=== PATIENT | male | born 1940 | race Caucasian/White ===

== ENCOUNTER 2017-07-02 07:59 | Inpatient (IN) | payer OTHER, BC ==
--- NOTE | 2017-06-17 12:17 | CPEKG ---
Heart Rate: 52 RR Interval: 1154 P-R Interval: 184 QRSD Interval: 88 QT Interval: 444 QTC Interval: 413 P [place]: 28 QRS [place]: -17 T Wave [place]: 108 EKG Severity - ABNORMAL ECG - EKG Impression: SINUS RHYTHM EKG Impression: LVH WITH SECONDARY REPOLARIZATION ABNORMALITY Electronically Signed By: Wero Sanches 17-Jun-2017 15:51:45
[~2017-07-02 07:59] MED LIST: TRANEXAMIC ACID 3,000 MG/50 ML BAG IRR ONE; VANCOMYCIN 1 GM VIAL ONE
[2017-07-02] MEDS ORDERED: ROPIVACAINE 0.2% 80 MG, EPINEPHrine 0.2 MG, KETOROLAC TROMETHAMINE 30 MG in BAG 0 ML IU ONE (09:00)
[2017-07-02] MEDS ORDERED: TRANEXAMIC ACID 3,000 MG in NS 50 ML IRR ONE (09:00)
--- NOTE | 2017-07-02 09:04 | PDHPUP ---
History & Physical Update H&P update statement: This history and physical update is based on an assessment of the patient which was completed after admission or registration (within 24 hours), but prior to the surgery/procedure. H&P update: H&P reviewed & patient examined, no change in patient's condition since H&P completed
[2017-07-02] MEDS ORDERED: FAMOTIDINE 20 MG TAB PO ONE (09:13)
[2017-07-02] MEDS ORDERED: ceFAZolin 2 GM/DEXTROSE 100 ML IV ONE (09:13)
[2017-07-02] MEDS ORDERED: ACETAMINOPHEN 325 MG TAB PO ONE (09:13)
[2017-07-02] MEDS ORDERED: DEXAMETHASONE 4 MG/ML VIAL IVP ONE (09:13)
[2017-07-02] MEDS ORDERED: LIDOCAINE 1% 2 ML INJ ID PRN (09:14)
[2017-07-02] MEDS ORDERED: LR 1,000 ML IV ONE (09:14)
[2017-07-02] MEDS ORDERED: PROPOFOL/EMULSION 500 MG/50 ML BOTTLE IV ONE (09:44)
[2017-07-02] MEDS ORDERED: LIDOCAINE 2% 5 ML SDV ONE (09:48)
--- NOTE | 2017-07-02 09:55 | PDANEPAE ---
ANE History of Present Illness right knee OA ANE Past Medical History - Cardiovascular History Hx Hypertension: Yes Hx Arrhythmias: No Hx Chest Pain: No Hx Coronary Artery / Peripheral Vascular Disease: Yes Hx CHF / Valvular Disease: No Hx Palpitations: No Cardiovascular History Comment: pcp monitors bp meds. hasn't seen recruitment assistant in a decade - Pulmonary History Hx COPD: No Hx Asthma/Reactive Airway Disease: No Hx Recent Upper Respiratory Infection: No Hx Oxygen in Use at Home: No Hx Sleep Apnea: Yes Sleep Apnea Screening Result - Last Documented: Positive Pulmonary History Comment: alisa positive uses cpap- instructed pt to bring cpap to hospital - Neurologic History Hx Cerebrovascular Accident: No Hx Seizures: No Hx Dementia: No - Endocrine History Hx Diabetes: Yes Obesity: severe Endocrine History Comment: type 2. hypothyroidism - Renal History Hx Renal Disorders: Yes Renal History Comment: bph. hx of greenlight laser surgery. frequency - Liver History Hx Hepatic Disorders: No - Cancer History Hx Cancer: Yes Cancer History Comment: skin ca removed x6 - Congenital Disorder History Hx Congenital Disorders: No - GI History Hx Gastrointestinal Disorders: Yes Gastrointestinal History Comment: reflux. hx of hernia repairs - Other Health History Other Health History: wears glasses - Chronic Pain History Chronic Pain: Yes (bilateral knees) - Surgical History Prior Surgeries: eyelid surgery. sinus surgery. skin ca removed x6. greenlight laser prostate surgery. hernia repairs. pyloric stenosis surgery at 6 weeks old ANE Review of Systems Review of Systems: - Exercise capacity METS (RN): 3 METS ANE Patient History - Allergies Allergies/Adverse Reactions: No Known Allergies Allergy (Verified 05/26/17 10:30) - Home Medications Home medications: home medication list seen and reviewed Home Medications: Aspirin [Aspirin 325 mg (*)] 0.5 tab PO BID 05/21/17 [Last Taken 06/25/17] Glimepiride [Amaryl 1 MG (*)] 1 mg PO DAILY 05/21/17 [Last Taken 07/02/17 06:30] Herbals/Supplements -Info Only 1 ea PO DAILY 05/21/17 [Last Taken 07/01/17] Hydrochlorothiazide [HCTZ (*)] 25 mg PO DAILY 05/21/17 [Last Taken 07/02/17 06: 30] Levothyroxine [Synthroid 175 mcg (*)] 175 mcg PO DAILY06 05/21/17 [Last Taken 06:30] Losartan Potassium [Cozaar] 100 mg PO DAILY 05/21/17 [Last Taken 07/02/17 06:30] Metoprolol Succinate Xr [Toprol Xl 50 mg (*)] 50 mg PO HS 05/21/17 [Last Taken 07/01/17] Multivitamins [Multivitamin (*)] 1 each PO DAILY 05/21/17 [Last Taken 07/01/17] Omeprazole [Prilosec 20 mg] 20 mg PO BID 05/21/17 [Last Taken 07/02/17 06:30] Simvastatin [Zocor] 10 mg PO HS 05/21/17 [Last Taken 07/01/17] amLODIPine BESYLATE [Norvasc 10 mg (*)] 10 mg PO HS 05/21/17 [Last Taken ] metFORMIN HCL [Glucophage 850 mg (*)] 850 mg PO BIDMEAL 05/21/17 [Last Taken 06/10 06:30] - NPO status NPO Since - Liquids (Date): 07/01/17 NPO Since - Liquids (Time): 22:30 NPO Since - Solids (Date): 07/01/17 NPO Since - Solids (Time): 22:30 - Smoking Hx Smoking Status: Never smoked - Family Anes Hx Family Hx Anesthesia Complications: none ANE Labs/Vital Signs - Vital Signs Blood Pressure: 137/74 Heart Rate: 50 Respiratory Rate: 16 O2 Sat (%): 91 Height: 175.26 cm Weight: 119.748 kg ANE Physical Exam - Airway Neck exam: FROM Mallampati Score: Class 2 Mouth exam: normal dental/mouth exam - Pulmonary Pulmonary: no respiratory distress - Cardiovascular Cardiovascular: regular rate and rhythym - ASA Status ASA Status: IV ANE Anesthesia Plan Anesthesia Plan: spinal Regional Anesthesia: single shot NB, adductor canal FNB
[2017-07-02] MEDS ORDERED: fentaNYL 100 MCG/2 ML INJ ONE (10:27)
[2017-07-02] MEDS ORDERED: PROPOFOL 200 MG/20 ML VIAL ONE (10:33)
[2017-07-02] MEDS ORDERED: LR 500 ML IV PRN (10:37)
[2017-07-02] MEDS ORDERED: HYDROmorphONE/DILAUDID 1 MG/ML INJ IVP PRN (10:37)
[2017-07-02] MEDS ORDERED: ONDANSETRON 4 MG/2 ML VIAL IVP PRN ×2 (10:37→11:25)
[2017-07-02] MEDS ORDERED: NALOXONE HCL 0.4 MG/ML INJ IVP PRN ×2 (10:37)
[2017-07-02] MEDS ORDERED: fentaNYL 100 MCG/2 ML INJ IVP PRN (10:37)
[2017-07-02] MEDS ORDERED: ACETAMINOPHEN 500 MG TAB PO PRN (10:37)
[2017-07-02] MEDS ORDERED: ALBUTEROL 3 ML DEYVIAL IH PRN (10:37)
--- NOTE | 2017-07-02 11:24 | POSTOPPROG ---
Post Op Note Date of Operation: 07/02/17 Surgeon: Rogelio Brewster Financial Sales Consultant: merna murillo Anesthesiologist: lilo Anesthesia: IV Sedation, Local (Specify) (adductor canal), Spinal Pre-op Diagnosis: R knee OA Post-op Diagnosis: R knee OA Indication: failed conservative therapies Procedure: R TKA Inf/Abcess present in the surg proc area at time of surgery?: No EBL: Minimal
[2017-07-02] MEDS ORDERED: PROMETHAZINE HCL 25 MG SUPPR PR PRN (11:25)
[2017-07-02] MEDS ORDERED: LACTULOSE 20 GM/30 ML UDCUP PO PRN (11:25)
[2017-07-02] MEDS ORDERED: TEMAZEPAM 15 MG CAP PO PRN (11:25)
[2017-07-02] MEDS ORDERED: oxyCODONE IR 5 MG TAB PO PRN (11:25)
[2017-07-02] MEDS ORDERED: PROMETHAZINE HCL 25 MG/ML INJ IVP PRN (11:25)
[2017-07-02] MEDS ORDERED: METOCLOPRAMIDE 10 MG/2 ML VIAL IVP PRN (11:25)
[2017-07-02] MEDS ORDERED: ONDANSETRON DISINTEGRATING 4 MG TAB PO PRN (11:25)
[2017-07-02] MEDS ORDERED: MAGNESIUM HYDROXIDE 30 ML UDCUP PO PRN (11:25)
[2017-07-02] MEDS ORDERED: CYCLOBENZAPRINE 10 MG TAB PO PRN (11:25)
[2017-07-02] MEDS ORDERED: POLYETHYLENE GLYCOL 3350 17 GM PKT PO PRN (11:25)
[2017-07-02] MEDS ORDERED: BISACODYL 10 MG SUPP PR PRN (11:25)
[2017-07-02] MEDS ORDERED: DIPHENOXYLATE/ATROPINE LOMOTIL 1 TAB PO PRN (11:25)
[2017-07-02] MEDS ORDERED: diphenhydrAMINE 25 MG CAP PO PRN (11:25)
[2017-07-02] MEDS ORDERED: LR 1,000 ML IV SCH (11:30)
--- NOTE | 2017-07-02 11:36 | POSTANESTH ---
Post Anesthetic Evaluation Cardiovascular Status: Normal, Stable Respiratory Status: Normal, Stable Level of Consciousness/Mental Status: Can Participate in Eval Pain Control: Adequate, Prn Tx Ordered Nausea/Vomiting Control: Adequate, Prn Tx Ordered Complications Possibly Related to Anesthesia: None Noted
[2017-07-02] MEDS: ACETAMINOPHEN 325 MG TAB PO SCH ×4 (16:39→23:40)
[2017-07-02] MEDS ORDERED: metFORMIN HCL 850 MG TAB PO SCH (18:00)
[2017-07-02] MEDS: ceFAZolin 2 GM/DEXTROSE 100 ML IV SCH (18:48)
[2017-07-02] MEDS ORDERED: METOPROLOL SUCCINATE XR 50 MG TAB PO SCH (21:00)
[2017-07-02] MEDS ORDERED: PRAVASTATIN SODIUM 20 MG TAB PO SCH (21:00)
[2017-07-02] MEDS ORDERED: NON-FORMULARY NEW DRUG (Omeprazole [Prilosec 20 Mg] 20 MG) PO SCH (21:00)
[2017-07-02] MEDS ORDERED: NON-FORMULARY NEW DRUG (Simvastatin [Zocor] 10 MG) PO SCH (21:00)
[2017-07-02] MEDS: metFORMIN HCL 850 MG TAB PO SCH (21:04)
[2017-07-02] MEDS: PANTOPRAZOLE SODIUM 40 MG TAB PO SCH (21:06)
[2017-07-02] MEDS: ASPIRIN 325 MG TAB PO SCH (21:09)
[2017-07-02] MEDS: SENNOSIDES/DOCUSATE SODIUM TAB PO SCH (21:09)
[2017-07-02] MEDS: FAMOTIDINE 20 MG TAB PO SCH (21:11)
[2017-07-03] MEDS: ceFAZolin 2 GM/DEXTROSE 100 ML IV SCH (02:00)
[2017-07-03] MEDS: ACETAMINOPHEN 325 MG TAB PO SCH ×2 (05:05→11:20)
[2017-07-03 05:49] LABS: HEMATOCRIT 35.4 % (40.0-51.0); HEMOGLOBIN 11.5 g/dL (13.7-17.5)
[2017-07-03] MEDS ORDERED: LEVOTHYROXINE 175 MCG TAB PO SCH (06:00)
[2017-07-03 08:42] VITALS: BP 139/65
[2017-07-03] MEDS ORDERED: Herbals/Supplements -Info Only PO SCH (09:00)
[2017-07-03] MEDS ORDERED: GLIMEPIRIDE 1 MG TAB PO SCH (09:00)
[2017-07-03] MEDS ORDERED: NON-FORMULARY NEW DRUG (Losartan Potassium [Cozaar] 100 MG) PO SCH (09:00)
[2017-07-03] MEDS ORDERED: HYDROCHLOROTHIAZIDE 25 MG TAB PO SCH (09:00)
[2017-07-03] MEDS ORDERED: LOSARTAN POTASSIUM 50 MG TAB PO SCH (09:00)
[2017-07-03] MEDS: ASPIRIN 325 MG TAB PO SCH (09:12)
[2017-07-03] MEDS: metFORMIN HCL 850 MG TAB PO SCH (09:13)
[2017-07-03] MEDS: PANTOPRAZOLE SODIUM 40 MG TAB PO SCH (09:13)
[2017-07-03] MEDS: SENNOSIDES/DOCUSATE SODIUM TAB PO SCH (09:14)
[2017-07-03] MEDS: FAMOTIDINE 20 MG TAB PO SCH (09:14)
[2017-07-03 12:00] VITALS: PULSE 56; RESP 14; TEMP 97.6; O2SAT 94
--- NOTE | 2017-07-03 12:23 | SOAPPROG ---
SOAP Progress Note Assessment/Plan: Assessment: Patient is doing well POD 1 s/p R TKA Pain management: pain is well controlled on oral pain meds. VTE ppx: recommend aspirin daily for 3 weeks, cont TIEN and SCDs Anemia: level is expected initially postop. Asymptomatic. Continue to monitor D/c planning: d/c to home today pending release from PT Plan: 07/03/17 12:23 Objective: Vital Signs Temp Pulse Resp BP Pulse Ox 36.4 C 56 L 14 139/65 H 94 07/03/17 12:00 07/03/17 12:00 07/03/17 12:00 07/03/17 12:00 07/03/17 12:00 Laboratory Results 07/03/17 05:29 07/02/17 07/03/17 07/04/17 05:59 05:59 05:59 Intake Total 1700 Output Total 1700 Balance 0 ICD10 Worksheet Patient Problems: Problems Problem Status Onset Osteoarthritis of right knee Acute - ICD10 Problem Qualifiers (1) Osteoarthritis of right knee Qualifiers: Osteoarthritis type: primary Qualified Code(s): M17.11 - Unilateral primary osteoarthritis, right knee
--- NOTE | 2017-07-04 17:06 | ASDISCHSUM ---
Discharge Information Plan Status:Home with Home Health Medically Cleared to Leave:07/03/2017 Discharge Date:07/03/2017 03:01 PM CM D/C Disposition:Home, Routine, Self-Care ADT D/C Disposition:Home, Routine, Self-Care Projected Discharge Date:07/03/2017 12:00 AM Transportation at D/C:Family Discharge Delay Reason: Follow-Up Date:07/03/2017 12:00 AM Discharge Slot: Final Diagnosis:R TKA Placement Information Patient Contact Information Contact Name:ROSE Relationship: Address:[address] Work Phone: City:[place] Alternate Phone: [facility]/Zip Code:[place] [address] Email: Financial Information Financial Class:MC Primary Plan Desc:MEDICARE INPATIENT Primary Plan Number:[id number] Secondary Plan Desc:BC OUT OF STATE PPO Secondary Plan Number:[id number] Assessment Information Intervention Information
--- NOTE | 2017-07-04 17:08 | ASMTCMCOM ---
CM Note CM Note Notes: Reviewed chart, spoke w/ JESUSITA Severino. Pt to discharge home independently w/ family support and no identified needs. No OT recs. PT rec outpt rehab and use of a front wheeled walker. Pt to f/u as directed. CM avail for any further issues or concerns. Date Signed: 07/03/2017 05:12 PM Electronically Signed By:Davina Solano
--- NOTE | 2017-07-05 09:24 | GOP ---
[f rep st] OPERATIVE REPORT DATE OF OPERATION: 07/02/2017 SURGEON: Anam Brewster MD MECHANICAL SYSTEMS ENGINEER: Andre Bridges PA-C. ANESTHESIA: Spinal. PREOPERATIVE DIAGNOSIS: Right knee osteoarthritis. POSTOPERATIVE DIAGNOSIS: Right knee osteoarthritis. PROCEDURE PERFORMED: Right total knee arthroplasty. FINDINGS/PATHOLOGY: Severe tricompartmental osteoarthritis. ESTIMATED BLOOD LOSS: 30 cc. INDICATIONS: This is a 77-year-old male with severe and progressive pain and deformity of the right knee, unresponsive to conservative care. Risks and benefits of the surgical intervention were explained in detail. DESCRIPTION OF PROCEDURE: The patient was brought to the operative room and placed on the table in the supine position. Spinal anesthesia was induced without difficulty. A pneumatic tourniquet was applied about the right proximal thigh, and the leg was prepped and draped in a sterile fashion. The leg quintero was applied. After exsanguination by elevation the tourniquet was inflated to 275 mm of mercury. Incision was made anterior medial from the tibial tuberosity to a point 2 cm proximal to the superior pole of the patella. Medial parapatellar arthrotomy was carried out from the superior pole of the patella and posteriorly in line with the fibers of the Type 2 VMO. The medial collateral ligament was elevated and the infrapatellar fat pad was resected. The patella was everted and the articular surface was excised. A 35 mm patellar button was placed. The distal femoral guide hole was drilled and the 6 degree alignment eduarda was placed. A 10 mm distal femoral cut was made without difficulty. Attention was turned to the tibia and a standard 9 mm cut based on the lateral tibial condyle was performed. The tibial articular surface was excised without difficulty. Attention was turned back to the femur and a size 5 Triathlon femoral cutting block was positioned. Anterior, posterior, and chamfer cuts were made, followed by the intercondylar box cut. The knee was extended and the remnants of the medial and lateral meniscus were excised. The posterior capsule was injected with ropivacaine, epinephrine and Toradol. A size 6 MIS mini-keel tibial tray was positioned. Trial reduction was then carried out. There was excellent range of motion, alignment, and stability using the 13 mm polyethylene. All trials were then removed. The joint was thoroughly irrigated and carefully dried. Two packages of cement and 2 grams of vancomycin were mixed in the vacuum mixer and placed on the fixation surfaces of all surfaces of the components. The components were implanted and all excess cement was thoroughly removed. The permanent 13 mm polyethylene X3 was placed without difficulty. The tourniquet was deflated and all bleeders were coagulated. The wound was thoroughly irrigated and closed using interrupted sutures of 2-0 Vicryl for the joint capsule. The subcu was closed with 3-0 Vicryl and the skin with 4-0 Monocryl. Dermabond and Steri-Strips were applied followed by a compressive dressing. The patient was then moved from the operating room to the recovery room in good condition, having tolerated the procedure well. /[id number]/MODL MTDD
--- NOTE | 2017-07-08 03:54 | GDS ---
[f rep st] DISCHARGE SUMMARY ADMISSION DIAGNOSIS: Right knee osteoarthritis. DISCHARGE DIAGNOSIS: Right knee osteoarthritis. PROCEDURE: Right total knee arthroplasty. VTE PROPHYLAXIS: Full-strength aspirin x21 days. BRIEF DESCRIPTION OF HOSPITAL STAY: Patient was admitted for an elective joint arthroplasty. The pa tient tolerated the procedure well and has passed physical therapy. The patient was given appropriat e antibiotic prophylaxis and venous thromboembolism prophylaxis. The patient's pain was well control led on oral pain medication, patient was holding down food, and had urinated. Decision was made to d ischarge the patient. The patient was given post-operative prescriptions pre-operatively. PLAN: Please follow up with Dr. Brewster as scheduled on 07/22/2017. /[id number]/MODL
== END 2017-07-03 15:01 | disposition home or self-care (01) | DRG 470 ==
LOC: F3N 07:59
PROVIDERS: ADMIT Orthopaedic Surgery; ATTEND Orthopaedic Surgery
PROC: 0SRC0J9 Replacement of Right Knee Joint with Synthetic Substitute, Cemented, Open Approach (ICD-10-PCS; principal; 2017-07-02 11:15)
DX: M17.11 Unilateral primary osteoarthritis, right knee (principal); I10 Essential (primary) hypertension; G47.33 Obstructive sleep apnea (adult) (pediatric); E11.9 Type 2 diabetes mellitus without complications; E03.9 Hypothyroidism, unspecified; N40.1 Benign prostatic hyperplasia with lower urinary tract symptoms; R35.0 Frequency of micturition
CPT/HCPCS: 97110-GP; 97116-GP; 97161-GP; 97165-GO; 97530-GP; C1713; G8978-GP-CK; G8979-GP-CI; G8980-GP-CI; G8987-GO-CI; G8988-GO-CI; G8989-GO-CI; J0171; J0690; J1100; J1885; J2704; J2795; J3010; J3370

== ENCOUNTER 2017-08-31 17:58 | Observation (INO) | payer OTHER, BC ==
[2017-08-31] MEDS ORDERED: ASPIRIN 81 MG CHEWABLE TAB PO ONE (18:20)
--- NOTE | 2017-08-31 18:23 | CPEKG ---
Heart Rate: 136 RR Interval: 441 QRSD Interval: 78 QT Interval: 320 QTC Interval: 482 QRS [place]: -21 T Wave [place]: 137 EKG Severity - ABNORMAL ECG - EKG Impression: ATRIAL FIBRILLATION EKG Impression: VENTRICULAR PREMATURE COMPLEX EKG Impression: LVH WITH SECONDARY REPOLARIZATION ABNORMALITY EKG Impression: BORDERLINE PROLONGED QT INTERVAL Electronically Signed By: Chasidy Villalpando 01-Sep-2017 00:02:46
[2017-08-31 18:31] LABS: PLATELET COUNT 270 10^3/uL (150-400)
[2017-08-31] MEDS ORDERED: DILTIAZEM 125 MG in D5W 125 ML IV ONE (18:33)
[2017-08-31] MEDS ORDERED: NS 500 ML IV ONE (18:34)
--- NOTE | 2017-08-31 18:39 | EDPHY ---
H & P Time Seen by Provider: 08/31/17 18:19 HPI/ROS: HPI Chest pain, shortness of breath. 77-year-old male by private vehicle with his . This patient reports that at 4:00 p.m. he developed substernal chest pain described as a pressure and squeezing sensation. It has been persistent since 4:00 p.m.. He also has associated shortness of breath and feeling fatigued. He denies any palpitations or rapid heart rate. He also describes having a dull gradual onset headache that has been present since earlier today. ROS: Constitutional: No fever, no chills. No weakness. Eyes: No discharge. No changes in vision. ENT: No sore throat. No nasal congestion or rhinorrhea. Respiratory: No cough. As above. Cardiac: As above, no palpitations. Gastrointestinal: No abdominal pain, no vomiting, no diarrhea. Genitourinary: No hematuria. No dysuria or increased frequency with urination. Musculoskeletal: No back pain. No neck pain. No myalgias or arthralgias. Skin: No rashes. Neurological: No headache. No focal weakness or altered sensation. Past medical history: Hypertension, hypothyroidism, type 2 diabetes, GERD, dyslipidemia, sleep apnea on CPAP at night, osteoarthritis. His primary care physician is Dr. Kassi Rojo. Social history: Nonsmoker. Denies alcohol. Here with his . Physical Exam: General Appearance: Alert, no distress. Moderately obese. This patient is responding to questions appropriately and in full sentences. This patient appears well-hydrated and well-nourished. Eyes: Pupils equal and round no pallor or injection. No lid edema, erythema or injection. Respiratory: There are no retractions, lungs are clear to auscultation anteriorly with good air movement bilaterally. Cardiovascular: Irregular irregular tachycardia. No murmur. Gastrointestinal: Abdomen is soft and nontender, no masses, bowel sounds normal. No focal tenderness at McBurney's point. No Chacon sign. Neurological: Motor sensory function is grossly intact. Cranial nerves are normal. Gait is normal. Skin: Warm and dry, no rashes. Musculoskeletal: Neck is supple and nontender. Extremities are symmetrical. All joints range without pain or impingement. Psychiatric: No agitation. No depression. Database: EKG: EKG time is 6:21 p.m.; EKG shows a narrow complex atrial fibrillation with ventricular rate average of 136. PVCs noted. Probable left ventricular hypertrophy. No ST, T-wave changes indicative of acute ischemic or injury pattern. Interpreted by me. EKG time is 7:24 p.m.; EKG shows a narrow complex normal sinus rhythm with a ventricular rate of 95. Left ventricular hypertrophy. The VT, QRS, QT intervals are within normal limits. There are no ST-T wave changes indicative of ischemic or injury pattern. No evidence of right heart strain. Interpreted by me. Imaging: Chest x-ray AP portable; hypoventilation, probable cardiomegaly. No evidence of infiltrate or pneumothorax. No acute cardiopulmonary disease process noted. Interpreted by me. CT angiogram of chest; negative for pulmonary embolism. Cardiomegaly noted. No failure. Results were discussed with staff radiologist Dr. Andre Aldridge. Procedures: Emergency department course: IV placed. He was placed on a cardiac exercise physiologist. He was given 324 mg of chewed aspirin. He was started on IV normal saline with 500 cc to be given over the next hour. Atrial fibrillation with RVR week treated with a diltiazem loading drip at 2.5 milligrams/minute initially. 7:20 p.m., patient spontaneously converted to a normal sinus rhythm. Monitor shows a narrow complex sinus rhythm with ventricular rate of 93. Blood pressure is 139/104. Diltiazem was not started prior to conversion. 8:20 p.m., patient resting comfortably. He remains in sinus rhythm. Narrow complex with ventricular rate of 82. He was given 25 mg oral metoprolol. Results of emergency department workup discussed with him and his . Plan for admission discussed. All of their questions were answered. Hospitalist paged for admission. 8:35 p.m., spoke with on-call hospitalist. Patient accepted for admission to telemetry under the care of the hospitalist service, Dr. Woods. Patient's remaining emergency department course under my care has been uneventful. He has remained in sinus rhythm with ventricular rate in the mid 80s. Blood pressure currently 153/82. He has no chest pain or shortness of breath at this time. He was admitted in stable and improved condition. Differential Diagnosis: The differential diagnosis on this patient includes but is not limited to new onset atrial fibrillation, acute coronary syndrome, pulmonary embolism. This represents a partial list of diagnoses considered. These considerations are based on history, physical exam, past history, reassessment and diagnostic testing. Smoking Status: Never smoked Constitutional: Initial Vital Signs Temperature (C) 36.5 C 08/31/17 18:12 Heart Rate 127 H 08/31/17 18:12 Respiratory Rate 20 08/31/17 18:12 Blood Pressure 134/112 H 08/31/17 18:12 O2 Sat (%) 93 08/31/17 18:12 O2 Delivery Mode Room Air O2 (L/minute) 2 Allergies/Adverse Reactions: No Known Allergies Allergy (Verified 08/31/17 18:11) Home Medications: Medication Instructions Recorded Aspirin [Aspirin 325 mg (*)] 0.5 tab PO BID 05/21/17 Glimepiride [Amaryl 1 MG (*)] 1 mg PO DAILY 05/21/17 Herbals/Supplements -Info Only 1 ea PO DAILY 05/21/17 Hydrochlorothiazide [HCTZ (*)] 25 mg PO DAILY 05/21/17 Levothyroxine [Synthroid 175 mcg 175 mcg PO DAILY06 05/21/17 (*)] Losartan Potassium [Cozaar] 100 mg PO DAILY 05/21/17 Metoprolol Succinate Xr [Toprol Xl 50 mg PO HS 05/21/17 50 mg (*)] Multivitamins [Multivitamin (*)] 1 each PO DAILY 05/21/17 Omeprazole [Prilosec 20 mg] 20 mg PO BID 05/21/17 Simvastatin [Zocor] 10 mg PO HS 05/21/17 amLODIPine BESYLATE [Norvasc 10 mg 10 mg PO HS 05/21/17 (*)] metFORMIN HCL [Glucophage 850 mg 850 mg PO BIDMEAL 05/21/17 (*)] Acetaminophen [Tylenol 325mg (*)] 650 mg PO Q6HRS tab 07/03/17 Ondansetron Odt [Zofran Odt 4 mg 4 mg PO Q4HRS PRN tab 07/03/17 (*)] Sennosides/Docusate Sodium 1 - 2 tab PO BID tab 07/03/17 [Senokot-S] Medical Decision Making - Diagnostics Imaging Results: Imaging Impressions Chest X-Ray 08/31/17 18:21 Impression: Limited hypoventilatory chest with cardiomegaly, with no definite acute findings. Chest/Thorax CTA 08/31/17 19:17 Impression: 1. There is no convincing CT evidence of pulmonary artery thromboemboli. 2. Cardiomegaly with LAD coronary artery atherosclerotic calcification. There is no evidence of congestive heart failure. 3. Sequela of old granulomatous disease. 4. Benign-appearing right renal cortical cyst. Findings were discussed with Chasidy Villalpando MD at 20:20, on 08/31/2017. - Data Points Laboratory Results: Laboratory Results 08/31/17 18:02 08/31/17 18:02 08/31/17 08/31/17 08/31/17 18:02 18:02 18:02 WBC 10.68 10^3/uL H 10^3/uL (3.80-9.50) RBC 5.59 10^6/uL 10^6/uL (4.40-6.38) Hgb 15.5 g/dL g/dL (13.7-17.5) Hct 46.3 % % (40.0-51.0) MCV 82.8 fL fL (81.5-99.8) MCH 27.7 pg L pg (27.9-34.1) MCHC 33.5 g/dL g/dL (32.4-36.7) RDW 18.8 % H % (11.5-15.2) Plt Count 270 10^3/uL 10^3/uL (150-400) MPV 9.0 fL fL (8.7-11.7) Neut % (Auto) 63.0 % % (39.3-74.2) Lymph % (Auto) 23.8 % % (15.0-45.0) Coke % (Auto) 9.9 % % (4.5-13.0) Eos % (Auto) 2.6 % % (0.6-7.6) Baso % (Auto) 0.3 % % (0.3-1.7) Nucleat RBC Rel Count 0.0 % % (0.0-0.2) Absolute Neuts (auto) 6.73 10^3/uL H 10^3/uL (1.70-6.50) Absolute Lymphs (auto) 2.54 10^3/uL 10^3/uL (1.00-3.00) Absolute Monos (auto) 1.06 10^3/uL H 10^3/uL (0.30-0.80) Absolute Eos (auto) 0.28 10^3/uL 10^3/uL (0.03-0.40) Absolute Basos (auto) 0.03 10^3/uL 10^3/uL (0.02-0.10) Absolute Nucleated RBC 0.00 10^3/uL 10^3/uL (0-0.01) Immature Gran % 0.4 % % (0.0-1.1) Immature Gran # 0.04 10^3/uL 10^3/uL (0.00-0.10) PT 14.0 SEC SEC (12.0-15.0) INR 1.09 (0.83-1.16) APTT 31.6 SEC SEC (23.0-38.0) D-Dimer 1.42 ug/mLFEU H ug/mLFEU (0.00-0.50) Sodium 143 mEq/L mEq/L (134-144) Potassium 3.8 mEq/L mEq/L (3.5-5.2) Chloride 102 mEq/L mEq/L (97-110) Carbon Dioxide 25 mEq/l mEq/l (22-31) Anion Gap 16 mEq/L mEq/L (8-16) BUN 16 mg/dL mg/dL (7-23) Creatinine 1.0 mg/dL mg/dL (0.7-1.3) Estimated GFR > 60 Glucose 149 mg/dL H mg/dL (70-100) Calcium 10.3 mg/dL mg/dL (8.5-10.4) Creatine Kinase 108 IU/L IU/L (0-224) CK-MB (CK-2) Fraction 2.42 ng/mL ng/mL (0.00-3.19) Troponin I 0.030 ng/mL ng/mL (0.000-0.034) NT-Pro-B Natriuret Pep 261 pg/mL pg/mL (0-450) TSH 0.328 uIU/mL L uIU/mL (0.465-4.680) Medications Given: Discontinued Medications Aspirin (Aspirin) 324 mg PO EDNOW ONE Stop: 08/31/17 18:21 Last Admin: 08/31/17 18:31 Dose: Not Given Sodium Chloride (Ns) 500 mls @ 1,000 mls/hr IV EDNOW ONE PRN Reason: Protocol Stop: 08/31/17 19:03 Last Admin: 08/31/17 19:58 Dose: 500 mls Departure - Departure Disposition: [facility] Inpatient Acute Clinical Impression: Atrial fibrillation with RVR, Chest pain, Possible hyperthyroid state Referrals: Sima Rojo MD [Primary Care Provider] - As per Instructions
[2017-08-31 18:40] LABS: INR 1.09 (0.83-1.16)
[2017-08-31] MEDS ORDERED: DILTIAZEM HCL/D5W 125 ML IV ONE (19:00)
[2017-08-31 19:03] LABS: CREATINE KINASE 108 IU/L (0-224)
[2017-08-31] MEDS ORDERED: IOPAMIDOL (ISOVUE 370) 100 ML BTL IV ONE (19:19)
--- NOTE | 2017-08-31 19:27 | CPEKG ---
Heart Rate: 95 RR Interval: 632 P-R Interval: 184 QRSD Interval: 76 QT Interval: 356 QTC Interval: 448 P [place]: 42 QRS [place]: -23 T Wave [place]: 126 EKG Severity - ABNORMAL ECG - EKG Impression: SINUS RHYTHM EKG Impression: LVH WITH SECONDARY REPOLARIZATION ABNORMALITY Electronically Signed By: Chasidy Villalpando 01-Sep-2017 00:02:46
[2017-08-31] MEDS ORDERED: METOPROLOL TARTRATE 25 MG TAB PO ONE (20:26)
[2017-08-31] MEDS ORDERED: ACETAMINOPHEN 325 MG TAB PO PRN (20:37)
[2017-08-31] MEDS ORDERED: ONDANSETRON DISINTEGRATING 4 MG TAB PO PRN (20:37)
[2017-08-31] MEDS ORDERED: ONDANSETRON 4 MG/2 ML VIAL IVP PRN (20:37)
[2017-08-31] MEDS ORDERED: NS 1,000 ML IV SCH (20:45)
--- NOTE | 2017-08-31 23:54 | PDGENHP ---
History and Physical - Chief Complaint Dyspnea - History of Present Illness 77 yo M w/ HTN and DM presents after acute onset dyspnea and chest pressure. He noticed these symptoms around 5 PM on the day of admission. He was sitting playing bridge at the time of onset. The symptoms lasted about an hour until shortly after arriving in the ED. Upon arrival in the ED ECG was notable for AF w/ RVR w/ HR in 130's. He spontaneously converted to NSR with only 500 mL NS. He denies prior hx of AF although he has known about an occasionally "irregular heartbeat" for several decades. He was asymptomatic at the time of my evaluation. History Information - Allergies/Home Medication List Allergies/Adverse Reactions: No Known Allergies Allergy (Verified 08/31/17 18:11) Home Medications: Glimepiride [Amaryl 1 MG (*)] 1 mg PO DAILY 05/21/17 [Last Taken 08/31/17] Herbals/Supplements -Info Only 1 ea PO DAILY 05/21/17 [Last Taken 08/31/17] Hydrochlorothiazide [HCTZ (*)] 25 mg PO DAILY 05/21/17 [Last Taken 08/31/17] Levothyroxine [Synthroid 175 mcg (*)] 175 mcg PO DAILY06 05/21/17 [Last Taken ] Losartan Potassium [Cozaar] 100 mg PO DAILY 05/21/17 [Last Taken 08/31/17] Metoprolol Succinate Xr [Toprol Xl 50 mg (*)] 50 mg PO HS 05/21/17 [Last Taken 08/30/17] Multivitamins [Multivitamin (*)] 0.5 each PO DAILY 05/21/17 [Last Taken 08/31/17 ] Omeprazole [Prilosec 20 mg] 20 mg PO BID 05/21/17 [Last Taken 08/31/17 09:00] Simvastatin [Zocor] 10 mg PO HS 05/21/17 [Last Taken 08/30/17] amLODIPine BESYLATE [Norvasc 10 mg (*)] 10 mg PO HS 05/21/17 [Last Taken ] metFORMIN HCL [Glucophage 850 mg (*)] 850 mg PO BIDMEAL 05/21/17 [Last Taken 05/10 09:00] Aspirin [Aspirin 325 mg (*)] 325 mg PO HS 08/31/17 [Last Taken 08/31/17 650MG] Ferrous Sulfate [Ferrous Sulf 325 MG (*)] 325 mg PO DAILY 08/31/17 [Last Taken 08/31/17] I have personally reviewed and updated: family history, medical history - Past Medical History diabetes type 2, hypertension - Surgical History Additional surgical history: TKA - Family History Positive for: cancer - Social History Smoking Status: Never smoked Review of Systems Review of Systems: ROS: 10pt was reviewed & negative except for what was stated in HPI & below Physical Exam Physical Exam: Temp Pulse Resp BP Pulse Ox 36.6 C 76 26 H 154/91 H 96 08/31/17 23:15 08/31/17 23:15 08/31/17 23:15 08/31/17 23:15 08/31/17 23:15 O2 (L/minute) 2 Constitutional: no apparent distress, appears nourished Eyes: PERRL, anicteric sclera Ears, Nose, Mouth, Throat: moist mucous membranes, no oral mucosal ulcers Cardiovascular: regular rate and rhythym, no murmur, rub, or gallop Respiratory: no respiratory distress, no rales or rhonchi Gastrointestinal: normoactive bowel sounds, soft, non-tender abdomen Skin: warm, normal color Musculoskeletal: full muscle strength, no muscle tenderness Neurologic: AAOx3, CN II-XII Intact Psychiatric: interacting appropriately, not anxious Lab Data & Imaging Review 08/31/17 18:02 08/31/17 18:02 WBC 10.68 10^3/uL (3.80-9.50) H 08/31/17 18:02 RBC 5.59 10^6/uL (4.40-6.38) 08/31/17 18:02 Hgb 15.5 g/dL (13.7-17.5) 08/31/17 18:02 Hct 46.3 % (40.0-51.0) 08/31/17 18:02 MCV 82.8 fL (81.5-99.8) 08/31/17 18:02 MCH 27.7 pg (27.9-34.1) L 08/31/17 18:02 MCHC 33.5 g/dL (32.4-36.7) 08/31/17 18:02 RDW 18.8 % (11.5-15.2) H 08/31/17 18:02 Plt Count 270 10^3/uL (150-400) 08/31/17 18:02 MPV 9.0 fL (8.7-11.7) 08/31/17 18:02 Neut % (Auto) 63.0 % (39.3-74.2) 08/31/17 18:02 Lymph % (Auto) 23.8 % (15.0-45.0) 08/31/17 18:02 [place] % (Auto) 9.9 % (4.5-13.0) 08/31/17 18:02 Eos % (Auto) 2.6 % (0.6-7.6) 08/31/17 18:02 Baso % (Auto) 0.3 % (0.3-1.7) 08/31/17 18:02 Nucleat RBC Rel Count 0.0 % (0.0-0.2) 08/31/17 18:02 Absolute Neuts (auto) 6.73 10^3/uL (1.70-6.50) H 08/31/17 18:02 Absolute Lymphs (auto) 2.54 10^3/uL (1.00-3.00) 08/31/17 18:02 Absolute Monos (auto) 1.06 10^3/uL (0.30-0.80) H 08/31/17 18:02 Absolute Eos (auto) 0.28 10^3/uL (0.03-0.40) 08/31/17 18:02 Absolute Basos (auto) 0.03 10^3/uL (0.02-0.10) 08/31/17 18:02 Absolute Nucleated RBC 0.00 10^3/uL (0-0.01) 08/31/17 18:02 Immature Gran % 0.4 % (0.0-1.1) 08/31/17 18:02 Immature Gran # 0.04 10^3/uL (0.00-0.10) 08/31/17 18:02 PT 14.0 SEC (12.0-15.0) 08/31/17 18:02 INR 1.09 (0.83-1.16) 08/31/17 18:02 APTT 31.6 SEC (23.0-38.0) 08/31/17 18:02 D-Dimer 1.42 ug/mLFEU (0.00-0.50) H 08/31/17 18:02 Sodium 143 mEq/L (134-144) 08/31/17 18:02 Potassium 3.8 mEq/L (3.5-5.2) 08/31/17 18:02 Chloride 102 mEq/L (97-110) 08/31/17 18:02 Carbon Dioxide 25 mEq/l (22-31) 08/31/17 18:02 Anion Gap 16 mEq/L (8-16) 08/31/17 18:02 BUN 16 mg/dL (7-23) 08/31/17 18:02 Creatinine 1.0 mg/dL (0.7-1.3) 08/31/17 18:02 Estimated GFR > 60 08/31/17 18:02 Glucose 149 mg/dL (70-100) H 08/31/17 18:02 Calcium 10.3 mg/dL (8.5-10.4) 08/31/17 18:02 Creatine Kinase 108 IU/L (0-224) 08/31/17 18:02 CK-MB (CK-2) Fraction 2.42 ng/mL (0.00-3.19) 08/31/17 18:02 Troponin I 0.030 ng/mL (0.000-0.034) 08/31/17 18:02 NT-Pro-B Natriuret Pep 261 pg/mL (0-450) 08/31/17 18:02 TSH 0.328 uIU/mL (0.465-4.680) L 08/31/17 18:02 Imaging Review: CTPE without PE. Visualized and Interpreted EKG results: Yes EKG Interpretation: Positive for: other (AF w/ RVR; subsequent ECG in NSR) Assessment & Plan Assessment: 77 yo M w/ HTN and DM presented with AF w/ RVR. Plan: 1. AF w/ RVR - Spontaneously converted back to NSR w/ NS only. Patient already takes Toprol XL as part of his HTN regimen but has no prior formal dx of Afib despite knowing about an occasionally "irregular heartbeat" for many years. [id number] of 4 for HTN, DM, and age therefore yielding a strong indication for anticoagulation. TSH mildly low at .3. - Monitor on telemetry, trend cardiac enzymes - Continue Toprol XL 50 mg qHS, would increase dose if AF w/ RVR recurs - Will start Xarelto 20 mg qD and stop ASA - TTE ordered for further evaluation - Will decrease LTX dose slightly, repeat TSH in 4-6 wks w/ PCP 2. Chest pressure - I suspect this is related to above, as symptoms resolved with conversion back to NSR. - Trend enzymes, monitor on telemetry 3. HTN - Continue home medications 4. NIDDM - Will continue home oral medications as renal function WNL and I suspect this will be a short stay 5. Hypothyroid - TSH mildly low on admission, will lower LTX dose to 150 mcg from 175 noting AF w/ RVR; recheck TSH in 4-6 weeks. Diet - Regular Code - Full Ppx - Xarelto Dispo - Admit to observation status
[2017-09-01] MEDS ORDERED: LEVOTHYROXINE 150 MCG TAB PO SCH (06:00)
[2017-09-01] MEDS ORDERED: LEVOTHYROXINE 175 MCG TAB PO SCH ×2 (06:00)
[2017-09-01 06:12] LABS: PLATELET COUNT 219 10^3/uL (150-400)
[2017-09-01 07:12] VITALS: RESP 16
[2017-09-01] MEDS: metFORMIN HCL 850 MG TAB PO SCH ×2 (08:43→10:27)
[2017-09-01] MEDS ORDERED: ENOXAPARIN 40 MG/0.4 ML SYR SC SCH (09:00)
[2017-09-01] MEDS ORDERED: RIVAROXABAN 20 MG TAB PO SCH (09:00)
[2017-09-01] MEDS ORDERED: GLIMEPIRIDE 1 MG TAB PO SCH (09:00)
[2017-09-01] MEDS ORDERED: NON-FORMULARY NEW DRUG (Losartan Potassium [Cozaar] 100 MG) PO SCH (09:00)
[2017-09-01] MEDS ORDERED: HYDROCHLOROTHIAZIDE 25 MG TAB PO SCH (09:00)
[2017-09-01] MEDS ORDERED: PANTOPRAZOLE SODIUM 40 MG TAB PO SCH (09:00)
[2017-09-01] MEDS ORDERED: FERROUS SULFATE 325 MG TAB PO SCH (09:00)
[2017-09-01] MEDS ORDERED: LOSARTAN POTASSIUM 50 MG TAB PO SCH (09:00)
[2017-09-01] MEDS ORDERED: NON-FORMULARY NEW DRUG (Omeprazole [Prilosec 20 Mg] 20 MG) PO SCH (09:00)
[2017-09-01 12:13] VITALS: BP 137/80; PULSE 72; TEMP 97.7; O2SAT 94
--- NOTE | 2017-09-01 14:11 | ECHO ---
[email or web address] [address] [address] Main: [phone] Fax: Transthoracic Echocardiogram Name: CLAYTON ALDANA MR#: [id number] Study Date: 09/01/2017 Study Time: 08:15 AM Date of : 1940 Age: 77 year(s) Height: 177.8 cm (70 in.) Weight: 119.75 kg (264 lb.) BSA: 2.35 m2 Gender: Male Examination: Echo Indication: Arrythmia, Cardiomegaly by Xray Image Quality: Contrast: Requested by: Adan Woods BP: 143 mmHg/81 mmHg Heart Rate: Rhythm: Normal sinus rhythm with ectopy Indication: Arrythmia, Cardiomegaly by Xray 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 Moderate concentric LV hypertrophy. Normal global systolic LV function. EF is 67 %. Normal size right ventricle. Normal RV function. The left atrium is mildly dilated. Small pericardial effusion. No echocardiographic evidence of hemodynamic compromise. Measurements: Chambers Valvular Assessment AV/MV Valvular Assessment TV/PV Normal Normal Normal Name Value Range Name Value Range Name Value Range Ao Colleen (MM): 3.5 cm (2.2 cm-3.7 AV Vmax: 1.72 m/s (1 m/s-1.7 TR Vmax: 2.23 mm/s ( - ) cm) m/s) TR PGmax: 20 mmHg ( - ) IVSd (2D): 1.3 cm (0.6 cm-1.1 AV maxP mmHg ( - ) syst. PAP: 25 mmHg ( - ) cm) LVOT Vmax: 1.25 m/s (0.7 m/s-1.1 PV Vmax: 1.18 m/s (0.6 m/s-0.9 LVDd (2D): 5.5 cm (4.2 cm-5.9 m/s) m/s) cm) MV E Vmax: 0.67 m/s ( - ) PV PGmax: 6 mmHg ( - ) LVDs (2D): 3.4 cm (2.1 cm-4 MV A Vmax: 1.06 m/s ( - ) cm) MV E/A: 0.63 ( - ) LVPWd (2D): 1.4 cm (0.6 cm-1 cm) LVEF (2D): 67 (>=54 %) Continued Measurements: Chambers Valvular Assessment TV/PV Name Value Name Value Patient: CLAYTON ALDANA Study Date: 09/01/2017 Page 1 of 2 08:15 AM LADs Lon.4 cm CVP (est.): 5 mmHg LA Area: 27.5 cm2 LA Volume: 74 ml LA Volume Index: 31.5 ml/m2 Findings: Left Ventricle: Normal size left ventricle. Moderate concentric LV hypertrophy. Normal global systolic LV function. EF is 67 %. No regional wall motion abnormality. Diastolic dysfunction is present. . Right Ventricle: Normal size right ventricle. Normal RV function. Left Atrium: The left atrium is mildly dilated. Right Atrium: The right atrium is normal in size. Mitral Valve: The mitral valve is normal in appearance and function. Trivial mitral valve regurgitation. Mitral annulus calcification. . Aortic Valve: The aortic valve is normal in appearance and function. The aortic valve is tri-leaflet. There is no aortic valve regurgitation. Tricuspid Valve: The tricuspid valve is normal in appearance and function. Trivial tricuspid valve regurgitation. The pulmonary artery pressure is normal. Pulmonic Valve: The pulmonic valve is normal in appearance and function. Aorta: The aorta is normal. Pericardium: Small pericardial effusion. No echocardiographic evidence of hemodynamic compromise. (No Signature Object) Patient: CLAYTON ALDANA Study Date: 09/01/2017 Page 2 of 2 08:15 AM [id number]
--- NOTE | 2017-09-01 14:11 | ECHO ---
[email or web address] [address] [address] Main: [phone] Fax: Transthoracic Echocardiogram Name: CLAYTON ALDANA MR#: [id number] Study Date: 09/01/2017 Study Time: 08:15 AM Date of : 1940 Age: 77 year(s) Height: 177.8 cm (70 in.) Weight: 119.75 kg (264 lb.) BSA: 2.35 m2 Gender: Male Examination: Echo Indication: Arrythmia, Cardiomegaly by Xray Image Quality: Contrast: Requested by: Adan Woods BP: 143 mmHg/81 mmHg Heart Rate: Rhythm: Normal sinus rhythm with ectopy Indication: Arrythmia, Cardiomegaly by Xray Procedure Staff Stock Chaser: Damian Pacheco Reading Physician: Arben Lofton Requesting Provider: Conclusions: Normal size left ventricle. Moderate concentric LV hypertrophy. Normal global systolic LV function. EF is 67 %. Normal size right ventricle. Normal RV function. The left atrium is mildly dilated. Small pericardial effusion. No echocardiographic evidence of hemodynamic compromise. Measurements: Chambers Valvular Assessment AV/MV Valvular Assessment TV/PV Normal Normal Normal Name Value Range Name Value Range Name Value Range Ao Colleen (MM): 3.5 cm (2.2 cm-3.7 AV Vmax: 1.72 m/s (1 m/s-1.7 TR Vmax: 2.23 mm/s ( - ) cm) m/s) TR PGmax: 20 mmHg ( - ) IVSd (2D): 1.3 cm (0.6 cm-1.1 AV maxP mmHg ( - ) syst. PAP: 25 mmHg ( - ) cm) LVOT Vmax: 1.25 m/s (0.7 m/s-1.1 PV Vmax: 1.18 m/s (0.6 m/s-0.9 LVDd (2D): 5.5 cm (4.2 cm-5.9 m/s) m/s) cm) MV E Vmax: 0.67 m/s ( - ) PV PGmax: 6 mmHg ( - ) LVDs (2D): 3.4 cm (2.1 cm-4 MV A Vmax: 1.06 m/s ( - ) cm) MV E/A: 0.63 ( - ) LVPWd (2D): 1.4 cm (0.6 cm-1 cm) LVEF (2D): 67 (>=54 %) Continued Measurements: Chambers Valvular Assessment TV/PV Name Value Name Value Patient: CLAYTON ALDANA Study Date: 09/01/2017 Page 1 of 2 08:15 AM LADs Lon.4 cm CVP (est.): 5 mmHg LA Area: 27.5 cm2 LA Volume: 74 ml LA Volume Index: 31.5 ml/m2 Findings: Left Ventricle: Normal size left ventricle. Moderate concentric LV hypertrophy. Normal global systolic LV function. EF is 67 %. No regional wall motion abnormality. Diastolic dysfunction is present. . Right Ventricle: Normal size right ventricle. Normal RV function. Left Atrium: The left atrium is mildly dilated. Right Atrium: The right atrium is normal in size. Mitral Valve: The mitral valve is normal in appearance and function. Trivial mitral valve regurgitation. Mitral annulus calcification. . Aortic Valve: The aortic valve is normal in appearance and function. The aortic valve is tri-leaflet. There is no aortic valve regurgitation. Tricuspid Valve: The tricuspid valve is normal in appearance and function. Trivial tricuspid valve regurgitation. The pulmonary artery pressure is normal. Pulmonic Valve: The pulmonic valve is normal in appearance and function. Aorta: The aorta is normal. Pericardium: Small pericardial effusion. No echocardiographic evidence of hemodynamic compromise. (No Signature Object) Patient: CLAYTON ALDANA Study Date: 09/01/2017 Page 2 of 2 08:15 AM [id number]
--- NOTE | 2017-09-01 14:11 | ECHO ---
[email or web address] [address] [address] Main: [phone] Fax: Transthoracic Echocardiogram Name: CLAYTON ALDANA MR#: [id number] Study Date: 09/01/2017 Study Time: 08:15 AM Date of : 1940 Age: 77 year(s) Height: 177.8 cm (70 in.) Weight: 119.75 kg (264 lb.) BSA: 2.35 m2 Gender: Male Examination: Echo Indication: Arrythmia, Cardiomegaly by Xray Image Quality: Contrast: Requested by: Adan Woods BP: 143 mmHg/81 mmHg Heart Rate: Rhythm: Normal sinus rhythm with ectopy Indication: Arrythmia, Cardiomegaly by Xray Procedure Staff Photographer: Damian Pacheco Reading Physician: Arben Lofton Requesting Provider: Conclusions: Normal size left ventricle. Moderate concentric LV hypertrophy. Normal global systolic LV function. EF is 67 %. Normal size right ventricle. Normal RV function. The left atrium is mildly dilated. Small pericardial effusion. No echocardiographic evidence of hemodynamic compromise. Measurements: Chambers Valvular Assessment AV/MV Valvular Assessment TV/PV Normal Normal Normal Name Value Range Name Value Range Name Value Range Ao Colleen (MM): 3.5 cm (2.2 cm-3.7 AV Vmax: 1.72 m/s (1 m/s-1.7 TR Vmax: 2.23 mm/s ( - ) cm) m/s) TR PGmax: 20 mmHg ( - ) IVSd (2D): 1.3 cm (0.6 cm-1.1 AV maxP mmHg ( - ) syst. PAP: 25 mmHg ( - ) cm) LVOT Vmax: 1.25 m/s (0.7 m/s-1.1 PV Vmax: 1.18 m/s (0.6 m/s-0.9 LVDd (2D): 5.5 cm (4.2 cm-5.9 m/s) m/s) cm) MV E Vmax: 0.67 m/s ( - ) PV PGmax: 6 mmHg ( - ) LVDs (2D): 3.4 cm (2.1 cm-4 MV A Vmax: 1.06 m/s ( - ) cm) MV E/A: 0.63 ( - ) LVPWd (2D): 1.4 cm (0.6 cm-1 cm) LVEF (2D): 67 (>=54 %) Continued Measurements: Chambers Valvular Assessment TV/PV Name Value Name Value Patient: CLAYTON ALDANA Study Date: 09/01/2017 Page 1 of 2 08:15 AM LADs Lon.4 cm CVP (est.): 5 mmHg LA Area: 27.5 cm2 LA Volume: 74 ml LA Volume Index: 31.5 ml/m2 Findings: Left Ventricle: Normal size left ventricle. Moderate concentric LV hypertrophy. Normal global systolic LV function. EF is 67 %. No regional wall motion abnormality. Diastolic dysfunction is present. . Right Ventricle: Normal size right ventricle. Normal RV function. Left Atrium: The left atrium is mildly dilated. Right Atrium: The right atrium is normal in size. Mitral Valve: The mitral valve is normal in appearance and function. Trivial mitral valve regurgitation. Mitral annulus calcification. . Aortic Valve: The aortic valve is normal in appearance and function. The aortic valve is tri-leaflet. There is no aortic valve regurgitation. Tricuspid Valve: The tricuspid valve is normal in appearance and function. Trivial tricuspid valve regurgitation. The pulmonary artery pressure is normal. Pulmonic Valve: The pulmonic valve is normal in appearance and function. Aorta: The aorta is normal. Pericardium: Small pericardial effusion. No echocardiographic evidence of hemodynamic compromise. (No Signature Object) Patient: CLAYTON ALDANA Study Date: 09/01/2017 Page 2 of 2 08:15 AM [id number]
--- NOTE | 2017-09-01 14:32 | PDDCSUM ---
Discharge Summary Discharge Summary: HPI/HOSPITAL COURSE 77 yo M w/ HTN and DM presented with AF w/ RVR. New onset. Self converted back in the E.D. with IVF and Cardizem. He is chronically on Toprol XL 50mg and this was increased to 75mg. As this was increased, Amlodipine was decreased from 10mg to 5mg daily. I offered monitoring overnight given that the toprol dose is being increased, but at this time, as he is in SR, he chooses discharge. Xarelto per below was started TTE c/w LVH and EF 67%. No wall abnormalities. The etiology for why he went into afib is unclear. BB was increased per above and AC was started. I have d/w Cardiology that the pt will f/u with them 1-3 weeks. LTX was decreased per below The pt is in agreement with discharge DDX: 1. AF w/ RVR - Spontaneously converted back to NSR w/ NS only. Patient already takes Toprol XL as part of his HTN regimen but has no prior formal dx of Afib despite knowing about an occasionally "irregular heartbeat" for many years. [id number] of 4 for HTN, DM, and age therefore yielding a strong indication for anticoagulation. TSH mildly low at .3. - Increase Toprol XL 75mg qHS, would increase dose if AF w/ RVR recurs - Will start Xarelto 20 mg qD and stop ASA - Will decrease LTX dose slightly, repeat TSH in 4-6 wks w/ PCP 2. Chest pressure - I suspect this is related to above, as symptoms resolved with conversion back to NSR. - w/u unremarkable 3. HTN - Continue home medications. Amlodipine decreased. Toprol increased 4. NIDDM 5. Hypothyroid - TSH mildly low on admission, will lower LTX dose to 150 mcg from 175 noting AF w/ RVR; recheck TSH in 4-6 weeks. Exam: VSS, RA NAD AAOX3 RRR NO JVD S/NT/ND MEDS: SEE MED REC F/U: WITH PCP NEXT WEEK, WITH CARDS 1-3 WEEKS TOTAL TIME SPENT ON DISCHARGE IS 35 MINUTES
[2017-09-01] MEDS ORDERED: NON-FORMULARY NEW DRUG (Simvastatin [Zocor] 10 MG) PO SCH (21:00)
[2017-09-01] MEDS ORDERED: METOPROLOL SUCCINATE XR 50 MG TAB PO SCH (21:00)
[2017-09-01] MEDS ORDERED: PRAVASTATIN SODIUM 20 MG TAB PO SCH ×2 (21:00)
--- NOTE | 2017-09-02 15:57 | ASDISCHSUM ---
Discharge Information Plan Status:Home with No Needs Medically Cleared to Leave:08/31/2017 Discharge Date:09/01/2017 04:00 PM CM D/C Disposition:Home, Routine, Self-Care ADT D/C Disposition:Home, Routine, Self-Care Projected Discharge Date:09/01/2017 12:00 AM Transportation at D/C:Family Discharge Delay Reason: Follow-Up Date:09/01/2017 12:00 AM Discharge Slot: Final Diagnosis: Placement Information Patient Contact Information Contact Name:ROSE Relationship: Address:[address] Work Phone: City:[place] Alternate Phone: [facility]/Zip Code:[place] [address] Email: Financial Information Financial Class: Primary Plan Desc:MEDICARE OUTPATIENT Primary Plan Number:[id number] Secondary Plan Desc: OUT OF STATE [facility] Secondary Plan Number:[id number] Assessment Information Intervention Information Intervention Type:*VELIZ-Signed Date of Service:09/01/2017 11:04 AM Patient Type:Observation Staff Member:Lisa Bowser Hours: Discipline: Severity: Comment:
--- NOTE | 2017-09-02 15:57 | ASDISCHSUM ---
Discharge Information Plan Status:Home with No Needs Medically Cleared to Leave:08/31/2017 Discharge Date:09/01/2017 04:00 PM CM D/C Disposition:Home, Routine, Self-Care ADT D/C Disposition:Home, Routine, Self-Care Projected Discharge Date:09/01/2017 12:00 AM Transportation at D/C:Family Discharge Delay Reason: Follow-Up Date:09/01/2017 12:00 AM Discharge Slot: Final Diagnosis: Placement Information Patient Contact Information Contact Name:ROSE Relationship: Address:[address] Work Phone: City:[place] Alternate Phone: [facility]/Zip Code:[place] [address] Email: Financial Information Financial Class: Primary Plan Desc:MEDICARE OUTPATIENT Primary Plan Number:[id number] Secondary Plan Desc: OUT OF STATE [facility] Secondary Plan Number:[id number] Assessment Information Intervention Information Intervention Type:*VELIZ-Signed Date of Service:09/01/2017 11:04 AM Patient Type:Observation Staff Member:Lisa Bowser Hours: Discipline: Severity: Comment:
--- NOTE | 2017-09-02 15:57 | ASDISCHSUM ---
Discharge Information Plan Status:Home with No Needs Medically Cleared to Leave:08/31/2017 Discharge Date:09/01/2017 04:00 PM CM D/C Disposition:Home, Routine, Self-Care ADT D/C Disposition:Home, Routine, Self-Care Projected Discharge Date:09/01/2017 12:00 AM Transportation at D/C:Family Discharge Delay Reason: Follow-Up Date:09/01/2017 12:00 AM Discharge Slot: Final Diagnosis: Placement Information Patient Contact Information Contact Name:ROSE Relationship: Address:[address] Work Phone: City:[place] Alternate Phone: [facility]/Zip Code:[place] [address] Email: Financial Information Financial Class: Primary Plan Desc:MEDICARE OUTPATIENT Primary Plan Number:[id number] Secondary Plan Desc: OUT OF STATE [facility] Secondary Plan Number:[id number] Assessment Information Intervention Information Intervention Type:*VELIZ-Signed Date of Service:09/01/2017 11:04 AM Patient Type:Observation Staff Member:Lisa Bowser Hours: Discipline: Severity: Comment:
== END 2017-09-01 16:00 | disposition home or self-care (01) ==
LOC: F2W 21:30
PROVIDERS: ADMIT Internal Medicine; ATTEND Internal Medicine
PROC: B245ZZ4 Ultrasonography of Left Heart, Transesophageal (ICD-10-PCS; principal; 2017-08-31)
DX: I48.91 Unspecified atrial fibrillation (principal); I10 Essential (primary) hypertension; E11.9 Type 2 diabetes mellitus without complications; E03.9 Hypothyroidism, unspecified; E78.5 Hyperlipidemia, unspecified; K21.9 Gastro-esophageal reflux disease without esophagitis; G47.33 Obstructive sleep apnea (adult) (pediatric); M19.90 Unspecified osteoarthritis, unspecified site
CPT/HCPCS: 71010; 71275; 93005; 93306; 99285; G0378; Q9967; J1650

== ENCOUNTER → 2017-09-29 | Outpatient (CLI) | payer OTHER, BC | LOC: BHFA 13:30 | PROVIDERS: ATTEND Internal Medicine Cardiovascular Disease | DX: I48.91 Unspecified atrial fibrillation (principal) ==

== ENCOUNTER → 2017-11-05 | Outpatient (CLI) | payer OTHER, BC | LOC: BHFA 13:00 | PROVIDERS: ATTEND Internal Medicine Cardiovascular Disease | DX: R07.9 Chest pain, unspecified (principal) | CPT/HCPCS: 78452; 93017; A9500; J2785 ==

== ENCOUNTER → 2017-12-19 | Outpatient (CLI) | payer OTHER, BC | LOC: FCPNEURO 21:00 | PROVIDERS: ATTEND Internal Medicine Sleep Medicine | DX: G47.33 Obstructive sleep apnea (adult) (pediatric) (principal); G47.31 Primary central sleep apnea; G47.61 Periodic limb movement disorder ==

== ENCOUNTER → 2017-12-27 | Outpatient (CLI) | payer OTHER, BC ==
[~2017-12-27] MED LIST changes: +GADOBUTROL 10 ML VIAL IVP ONE; -TRANEXAMIC ACID 3,000 MG/50 ML BAG IRR ONE; -VANCOMYCIN 1 GM VIAL ONE
== END ==
LOC: FIMAGING 10:53
PROVIDERS: ATTEND Psychiatry & Neurology Neurology
DX: G31.9 Degenerative disease of nervous system, unspecified (principal); R90.82 White matter disease, unspecified; H61.891 Other specified disorders of right external ear
CPT/HCPCS: 70553; A9585

== ENCOUNTER 2018-06-22 05:50 | Inpatient (IN) | payer OTHER, BC ==
[~2018-06-22 05:50] MED LIST changes: -GADOBUTROL 10 ML VIAL IVP ONE; +ROPIVACAINE 0.2% 80 MG, EPINEPHrine 0.2 MG, KETOROLAC TROMETHAMINE 30 MG in SYRINGE 0 ML IU ONE; +TRANEXAMIC ACID 3,000 MG in NS (SYRINGE) 50 ML IRR ONE
[2018-06-22] MEDS ORDERED: ceFAZolin 2 GM/DEXTROSE 100 ML IV ONE (06:14)
[2018-06-22] MEDS ORDERED: FAMOTIDINE 20 MG TAB PO ONE (06:14)
[2018-06-22] MEDS ORDERED: DEXAMETHASONE 4 MG/ML VIAL IVP ONE (06:14)
[2018-06-22] MEDS ORDERED: ACETAMINOPHEN 325 MG TAB PO ONE (06:14)
[2018-06-22] MEDS ORDERED: LR 1,000 ML IV ONE (06:15)
[2018-06-22] MEDS ORDERED: VANCOMYCIN 1 GM VIAL ONE (06:39)
[2018-06-22] MEDS ORDERED: TRANEXAMIC ACID 3,000 MG/50 ML BAG IRR ONE (06:40)
[2018-06-22] MEDS ORDERED: NALOXONE HCL 0.4 MG/ML INJ IVP PRN (07:52)
[2018-06-22] MEDS ORDERED: PROMETHAZINE HCL 25 MG/ML INJ IVP PRN ×2 (07:52→09:37)
[2018-06-22] MEDS ORDERED: ONDANSETRON 4 MG/2 ML VIAL IVP PRN ×2 (07:52→09:37)
[2018-06-22] MEDS ORDERED: LR 500 ML IV PRN (07:52)
[2018-06-22] MEDS ORDERED: PHENYLEPHRINE HCL 100 MCG/ML SYR IVP PRN (07:52)
--- NOTE | 2018-06-22 07:52 | PDANEPAE ---
ANE Past Medical History - Cardiovascular History Hx Hypertension: Yes Hx Arrhythmias: Yes Hx Chest Pain: No Hx Coronary Artery / Peripheral Vascular Disease: Yes Hx CHF / Valvular Disease: No Hx Palpitations: No Cardiovascular History Comment: pcp monitors bp meds - Pulmonary History Hx COPD: No Hx Asthma/Reactive Airway Disease: No Hx Recent Upper Respiratory Infection: No Hx Oxygen in Use at Home: No Hx Sleep Apnea: Yes Sleep Apnea Screening Result - Last Documented: Positive Pulmonary History Comment: alisa positive uses cpap- instructed pt to bring cpap to hospital - Neurologic History Hx Cerebrovascular Accident: No Hx Seizures: No Hx Dementia: No - Endocrine History Hx Diabetes: Yes Hypothyroid: Yes Hyperthyroid: No Obesity: yes, moderate Endocrine History Comment: type 2. hypothyroidism - Renal History Hx Renal Disorders: Yes Renal History Comment: bph. hx of greenlight laser surgery. frequency - Liver History Hx Hepatic Disorders: No - Neurological & Psychiatric Hx Hx Neurological and Psychiatric Disorders: No - Cancer History Hx Cancer: Yes Cancer History Comment: skin ca removed x6 - Congenital Disorder History Hx Congenital Disorders: No - GI History GERD: moderate Hx Gastrointestinal Disorders: Yes Gastrointestinal History Comment: reflux. hx of hernia repairs - Other Health History Other Health History: wears glasses - Chronic Pain History Chronic Pain: Yes (bilateral knees) - Surgical History Prior Surgeries: eyelid surgery. sinus surgery. skin ca removed x6. greenlight laser prostate surgery. hernia repairs. pyloric stenosis surgery at 6 weeks old ANE Review of Systems Review of Systems: - Exercise capacity Exercise capacity: limited by disability METS (RN): 4 METS ANE Patient History - Allergies Allergies/Adverse Reactions: No Known Allergies Allergy (Verified 06/22/18 06:42) - Home Medications Home Medications: Glimepiride [Amaryl 1 MG (*)] 1 mg PO DAILY 05/21/17 [Last Taken 06/21/18] Herbals/Supplements -Info Only 1 ea PO DAILY 05/21/17 [Last Taken 06/17/18] Hydrochlorothiazide [HCTZ (*)] 25 mg PO DAILY 05/21/17 [Last Taken 06/21/18] Losartan Potassium [Cozaar] 100 mg PO DAILY 05/21/17 [Last Taken 06/21/18] Metoprolol Succinate Xr [Toprol Xl 50 mg (*)] 50 mg PO BID 05/21/17 [Last Taken 06/21/18] Multivitamins [Multivitamin (*)] 0.5 each PO HS 05/21/17 [Last Taken 06/17/18] Omeprazole [Prilosec 20 mg] 20 mg PO BID 05/21/17 [Last Taken 06/21/18] Simvastatin [Zocor] 10 mg PO HS 05/21/17 [Last Taken 06/21/18] metFORMIN HCL [Glucophage 850 mg (*)] 850 mg PO BID 05/21/17 [Last Taken ] Ferrous Sulfate [Ferrous Sulf 325 MG (*)] 325 mg PO DAILY 08/31/17 [Last Taken 06/17/18] [place]-3 Fatty Acids [Fish Oil 1000 mg (*)] 2,000 mg PO BID 05/18/18 [Last Taken 06/17/18] Rivaroxaban [Xarelto] 20 mg PO HS 05/18/18 [Last Taken 06/16/18] amLODIPine BESYLATE [Norvasc 5 mg (*)] 5 mg PO HS 05/18/18 [Last Taken 06/21/18] - NPO status NPO Since - Liquids (Date): 06/22/18 NPO Since - Liquids (Time): 04:00 NPO Since - Solids (Date): 06/21/18 NPO Since - Solids (Time): 22:00 - Anes Hx Anes Hx: no prior problems - Smoking Hx Smoking Status: Never smoked Marijuana use: No - Alcohol Use Alcohol Use: Rarely - Family Anes Hx Family Anes Hx: neg - N/A Family Hx Anesthesia Complications: none ANE Labs/Vital Signs - Vital Signs Blood Pressure: 164/90 Heart Rate: 53 Respiratory Rate: 16 O2 Sat (%): 93 Height: 177.8 cm Weight: 117.934 kg ANE Physical Exam - Airway Neck exam: decreased ROM Mallampati Score: Class 3 Mouth exam: normal dental/mouth exam - Pulmonary Pulmonary: no respiratory distress, no rales or rhonchi, clear to auscultation - Cardiovascular Cardiovascular: regular rate and rhythym, no murmur, rub, or gallop - ASA Status ASA Status: IV ANE Anesthesia Plan Anesthesia Plan: MAC, spinal Total IV Anesthesia: No
[2018-06-22] MEDS ORDERED: PROPOFOL/EMULSION 500 MG/50 ML BOTTLE IV ONE ×2 (07:57→08:59)
[2018-06-22] MEDS ORDERED: fentaNYL 100 MCG/2 ML INJ ONE (07:57)
[2018-06-22] MEDS ORDERED: LIDOCAINE 2% 2 ML INJ ONE ×3 (08:04)
[2018-06-22] MEDS ORDERED: ROPIVACAINE HCL 150 MG/30 ML INJ ONE (09:32)
[2018-06-22] MEDS ORDERED: POLYETHYLENE GLYCOL 3350 17 GM PKT PO PRN (09:37)
[2018-06-22] MEDS ORDERED: LACTULOSE 20 GM/30 ML UDCUP PO PRN (09:37)
[2018-06-22] MEDS ORDERED: TEMAZEPAM 15 MG CAP PO PRN (09:37)
[2018-06-22] MEDS ORDERED: BISACODYL 10 MG SUPP PR PRN (09:37)
[2018-06-22] MEDS ORDERED: DIPHENOXYLATE/ATROPINE LOMOTIL 1 TAB PO PRN (09:37)
[2018-06-22] MEDS ORDERED: CYCLOBENZAPRINE 10 MG TAB PO PRN (09:37)
[2018-06-22] MEDS ORDERED: diphenhydrAMINE 25 MG CAP PO PRN (09:37)
[2018-06-22] MEDS ORDERED: METOCLOPRAMIDE 10 MG/2 ML VIAL IVP PRN (09:37)
[2018-06-22] MEDS ORDERED: PROMETHAZINE HCL 25 MG SUPPR PR PRN (09:37)
[2018-06-22] MEDS ORDERED: ONDANSETRON DISINTEGRATING 4 MG TAB PO PRN (09:37)
[2018-06-22] MEDS ORDERED: oxyCODONE IR 5 MG TAB PO PRN (09:37)
[2018-06-22] MEDS ORDERED: MAGNESIUM HYDROXIDE 30 ML UDCUP PO PRN (09:37)
--- NOTE | 2018-06-22 09:37 | POSTOPPROG ---
Post Op Note Date of Operation: 06/22/18 Surgeon: Rogelio Cardona Controlled Area Checker: maria r cardona PA-C Anesthesiologist: dr. jones Anesthesia: Spinal, Other (Specify) (adductor canal block) Pre-op Diagnosis: left knee OA Post-op Diagnosis: same Indication: left knee pain Procedure: L TKA Findings: severe knee OA Inf/Abcess present in the surg proc area at time of surgery?: No EBL: 50-100
[2018-06-22] MEDS ORDERED: LR 1,000 ML IV SCH (10:00)
--- NOTE | 2018-06-22 10:58 | POSTANESTH ---
Post Anesthetic Evaluation Cardiovascular Status: Similar to Pre-Op Cond Respiratory Status: Normal, Stable Level of Consciousness/Mental Status: Can Participate in Eval Pain Control: Adequate, Prn Tx Ordered Nausea/Vomiting Control: Adequate, Prn Tx Ordered Complications Possibly Related to Anesthesia: None Noted
[2018-06-22] MEDS ORDERED: D50W 25 GM/50 ML VIAL IVP PRN (14:48)
[2018-06-22] MEDS: ACETAMINOPHEN 325 MG TAB PO SCH ×2 (15:59→17:47)
[2018-06-22] MEDS: ceFAZolin 2 GM/DEXTROSE 100 ML IV SCH (16:36)
[2018-06-22] MEDS: INSULIN REGULAR HUMAN 100 UNIT/ML UNIT SC SCH ×2 (17:48→20:49)
[2018-06-22] MEDS: SENNOSIDES/DOCUSATE SODIUM TAB PO SCH (20:07)
[2018-06-22] MEDS: metFORMIN HCL 850 MG TAB PO SCH (20:07)
[2018-06-22] MEDS: METOPROLOL SUCCINATE XR 50 MG TAB PO SCH (20:07)
[2018-06-22] MEDS: FAMOTIDINE 20 MG TAB PO SCH (20:08)
[2018-06-22] MEDS ORDERED: amLODIPine BESYLATE 5 MG TAB PO SCH (21:00)
[2018-06-23] MEDS: ACETAMINOPHEN 325 MG TAB PO SCH ×3 (00:10→13:04)
[2018-06-23] MEDS: ceFAZolin 2 GM/DEXTROSE 100 ML IV SCH (00:11)
[2018-06-23] MEDS ORDERED: LEVOTHYROXINE 150 MCG TAB PO SCH (06:00)
[2018-06-23 07:34] VITALS: BP 144/84
[2018-06-23] MEDS: INSULIN REGULAR HUMAN 100 UNIT/ML UNIT SC SCH ×2 (08:11→12:25)
[2018-06-23] MEDS: FAMOTIDINE 20 MG TAB PO SCH (08:13)
[2018-06-23] MEDS: metFORMIN HCL 850 MG TAB PO SCH (08:14)
[2018-06-23] MEDS: SENNOSIDES/DOCUSATE SODIUM TAB PO SCH (08:20)
[2018-06-23] MEDS: METOPROLOL SUCCINATE XR 50 MG TAB PO SCH (08:27)
--- NOTE | 2018-06-23 08:48 | SOAPPROG ---
SOAP Progress Note Assessment/Plan: Assessment: Patient is doing well POD 1 s/p L TKA Pain management: pain is well controlled on oral pain meds. VTE ppx: recommend resuming xarelto, cont TIEN and SCDs D/c planning: d/c to home today pending release from PT Plan: 06/23/18 08:47 06/23/18 08:48 Subjective: rodrick is resting comfortably, denies SOB, chest pain and N/V. Objective: Vital Signs Temp Pulse Resp BP Pulse Ox 36.8 C 61 16 144/84 H 92 06/23/18 07:28 06/23/18 08:27 06/23/18 07:28 06/23/18 08:27 06/23/18 07:28 Laboratory Results 06/23/18 04:41 06/23/18 04:41 06/22/18 06/23/18 06/24/18 05:59 05:59 05:59 Intake Total 3262 680 Output Total 2550 Balance 712 680 LLE: incision dressing is clean and dry, NVI, +pf/df ICD10 Worksheet Patient Problems: Problems Problem Status Onset Primary localized osteoarthritis of left knee Acute Atrial fibrillation with RVR Acute Chest pain Acute Osteoarthritis of right knee Acute
[2018-06-23] MEDS ORDERED: FERROUS SULFATE 325 MG TAB PO SCH (09:00)
[2018-06-23] MEDS ORDERED: GLIMEPIRIDE 1 MG TAB PO SCH (09:00)
[2018-06-23] MEDS ORDERED: PRAVASTATIN SODIUM 10 MG TAB PO SCH (09:00)
[2018-06-23] MEDS ORDERED: RIVAROXABAN 20 MG TAB PO SCH (09:00)
[2018-06-23] MEDS ORDERED: LOSARTAN POTASSIUM 50 MG TAB PO SCH (09:00)
[2018-06-23] MEDS ORDERED: HYDROCHLOROTHIAZIDE 25 MG TAB PO SCH (09:00)
[2018-06-23] MEDS ORDERED: PANTOPRAZOLE SODIUM 40 MG TAB PO SCH (09:00)
--- NOTE | 2018-06-23 09:15 | PDMN ---
Medical Necessity Medical necessity: Pt meets IP criteria per & [facility] S-700; los >2 mn s/p L TKA POD #0; requiring further monitoring, pain management, IVFs & therapies; comorbid advanced age, diabetes, HTN, AFIB on AC, JOHN, thyroid disease; per H&P & order 06/22/18
--- NOTE | 2018-06-23 10:09 | GOP ---
[f rep st] OPERATIVE REPORT DATE OF OPERATION: 06/22/2018 SURGEON: Anam Brewster MD WATER AND GAS HELPER: ROBIN Joseph ANESTHESIA: Spinal. PREOPERATIVE DIAGNOSIS: Left knee osteoarthritis. POSTOPERATIVE DIAGNOSIS: Left knee osteoarthritis. PROCEDURE PERFORMED: Total knee arthroplasty. FINDINGS: ESTIMATED BLOOD LOSS: 30 cc. INDICATIONS: This is a 78-year-old male with severe and progressive pain and deformity of the left knee unresponsive to conservative care. Risks and benefits of the surgical intervention were explained in detail. DESCRIPTION OF PROCEDURE: The patient was brought to the operative room and placed on the table in the supine position. Spinal anesthesia was induced without difficulty. A pneumatic tourniquet was applied about the left proximal thigh, and the leg was prepped and draped in a sterile fashion. The leg quintero was applied. After exsanguination by elevation the tourniquet was inflated to 250 mm of mercury. Incision was made anterior medial from the tibial tuberosity to a point 2 cm proximal to the superior pole of the patella. Medial parapatellar arthrotomy was carried out from the superior pole of the patella and posteriorly in line with the fibers of the Type 2 VMO. The medial collateral ligament was elevated and the infrapatellar fat pad was resected. The patella was everted and the articular surface was excised. A 35 mm patellar button was placed. The distal femoral guide hole was drilled and the 6 degree alignment eduarda was placed. A 10 mm distal femoral cut was made without difficulty. Attention was turned to the tibia and a standard 9 mm cut based on the lateral tibial condyle was performed. The tibial articular surface was excised without difficulty. Attention was turned back to the femur and a size 5 Triathlon femoral cutting block was positioned. Anterior, posterior, and chamfer cuts were made, followed by the intercondylar box cut. The knee was extended and the remnants of the medial and lateral meniscus were excised. The posterior capsule was injected with ropivacaine, epinephrine and Toradol. A size 6 tibial tray was positioned. Trial reduction was then carried out. There was excellent range of motion, alignment, and stability using the 13 mm polyethylene. All trials were then removed. The joint was thoroughly irrigated and carefully dried. Two packages of cement and 2 grams of vancomycin were mixed in the vacuum mixer and placed on the fixation surfaces of all surfaces of the components. The components were implanted and all excess cement was thoroughly removed. The permanent 13 mm X3 polyethylene was placed without difficulty. The tourniquet was deflated and all bleeders were coagulated. The wound was thoroughly irrigated and closed using interrupted sutures of 2-0 Vicryl for the joint capsule. The subcu was closed with 3-0 Vicryl and the skin with 4-0 Monocryl. Dermabond and Steri-Strips were applied followed by a compressive dressing. The patient was then moved from the operating room to the recovery room in good condition, having tolerated the procedure well. /[id number]/MODL MTDD
--- NOTE | 2018-06-23 12:10 | GDS ---
[f rep st] DISCHARGE SUMMARY ADMISSION DIAGNOSIS: Left knee osteoarthritis. DISCHARGE DIAGNOSIS: Left knee osteoarthritis. PROCEDURE: Left total knee arthroplasty. VTE PROPHYLAXIS: Recommend Xarelto. BRIEF DESCRIPTION OF HOSPITAL STAY: Patient was admitted for an elective joint arthroplasty. The pa tera tolerated the procedure well and has passed physical therapy. The patient was given appropriat e antibiotic prophylaxis and venous thromboembolism prophylaxis. The patient's pain was well control led on oral pain medication, patient was holding down food, and had urinated. Decision was made to d ischarge the patient. The patient was given post-operative prescriptions pre-operatively. PLAN: Follow up as scheduled in Dr. Brewster's office in 3 weeks. /[id number]/MODL
== END 2018-06-23 13:37 | disposition home or self-care (01) | DRG 470 ==
LOC: F3N 05:50 → OBSVTOIN 09:40 → F3N 14:00
PROVIDERS: ADMIT Orthopaedic Surgery; ATTEND Orthopaedic Surgery
PROC: 0SRD0J9 Replacement of Left Knee Joint with Synthetic Substitute, Cemented, Open Approach (ICD-10-PCS; principal; 2018-06-22 08:00)
DX: M17.12 Unilateral primary osteoarthritis, left knee (principal); E03.9 Hypothyroidism, unspecified; E11.9 Type 2 diabetes mellitus without complications; E78.00 Pure hypercholesterolemia, unspecified; I10 Essential (primary) hypertension; G47.30 Sleep apnea, unspecified
CPT/HCPCS: 97116-GP; 97161-GP; 97165-GO; 97530-GP; C1713; G8978-GP-CJ; G8979-GP-CI; G8980-GP-CI; G8987-GO-CI; G8988-GO-CI; G8989-GO-CI; J0171; J0690; J1100; J1815; J1885; J2704; J2795; J3010; J3370

== ENCOUNTER 2018-10-31 12:52 | Emergency (ER) | payer OTHER, BC ==
--- NOTE | 2018-10-31 13:25 | EDPHY ---
H & P Stated Complaint: slip/fall 10/25: R calf bruise, flight from [place] 10/25, stopped xaralto 1D Time Seen by Provider: 10/31/18 13:24 HPI/ROS: HPI: This is a 78-year-old male who presents with Chief Complaint: slip/fall 10/25: R calf bruise, flight from [place] 10/25, stopped Xarelto 1D Location: Quality: Duration: Signs and Symptoms: no shortness of breath at rest, no shortness of breath on exertion, no cough, no chest pain, no palpitations, no lower extremity edema, no wheezing, no orthopnea, no paroxysmal nocturnal dyspnea, no fever, no injury/ trauma, no hemoptysis, no carpal pedal spasms Timing: Severity: Context: Patient was getting out of the hotel shuffle on October 25 when he lost footing on the ice and slipped and twisted his right ankle. He has a history of knee replacement on the left. Patient reports that he developed swelling and bruising on the right medial aspect of his ankle. He reports that the pain has persisted. He has been in [place] flying back and forth. Patient reports that he did not take his Xarelto last night as he has no surgery scheduled this Wednesday. Patient reports pain in his calf but denies any chest pain, shortness of breath, palpitations. He reports pain is increased with weight-bearing on the right lower extremity. Modifying Factors: None Comment: ROS: A comprehensive 10 system review of systems is otherwise negative aside from elements mentioned in the history of present illness. MEDICAL/SURGICAL/SOCIAL HISTORY: Medical history: HTN, DM2, hypothyroid, GERD, dyslipidemia, JOHN/CPAP, a-fib Surgical history: Denies Social history: Never smoked. . Retired. CONSTITUTIONAL: Talkative polite and cooperative elderly white male, awake and alert, no obvious distress HEENT: Atraumatic and normocephalic, PERRL, EOMI. Nares patent; no rhinorrhea; no nasal mucosal edema. Tympanic membranes clear. Oropharynx clear, no exudate and moist pink mucosa. Airway patent. No lymphadenopathy. No meningismus. Cardiovascular: Normal S1/S2, regular rate, regular rhythm, without murmur rub or gallop. PULMONARY/CHEST: Symmetrical and nontender. Clear to auscultation bilaterally. Good air movement. No accessory muscle usage. ABDOMEN: Soft, nondistended, nontender, no rebound, no guarding, no peritoneal signs, no masses or organomegaly. No CVAT. EXTREMITIES: 2/2 pedal pulses, strength 5/5, right Ankle: Plantar flexion to 50 , dorsiflexion to 20. Foot inversion to 35 degree. No tenderness/swelling Anterior talofibular ligament. No tenderness/swelling Calcaneofibular ligament , moderate tenderness/swelling posterior talofibular ligament, moderate tenderness/swelling posterior inferior tibiofibular ligament. Achilles tendon intact. no deformities, no clubbing, no cyanosis or edema. Mild Homans sign right calf NEUROLOGICAL: no focal neuro deficits. GCS 15. SKIN: Warm and dry, no erythema. no rash. Good capillary refill. Source: Patient Exam Limitations: No limitations - Medical/Surgical History Hx Asthma: No Hx Chronic Respiratory Disease: Yes Hx Diabetes: Yes Hx Cardiac Disease: Yes Hx Renal Disease: No Hx Cirrhosis: No Hx Alcoholism: No Hx HIV/AIDS: No Hx Splenectomy or Spleen Trauma: No Other PMH: HTN, DM2, hypothyroid, GERD, dyslipidemia, JOHN/CPAP, a-fib - Social History Smoking Status: Never smoked Constitutional: Initial Vital Signs Temperature (C) 36.8 C 10/31/18 13:02 Heart Rate 58 L 10/31/18 13:02 Respiratory Rate 16 10/31/18 13:02 Blood Pressure 164/102 H 10/31/18 13:02 O2 Sat (%) 92 10/31/18 13:02 O2 Delivery Mode Room Air Allergies/Adverse Reactions: No Known Allergies Allergy (Verified 10/31/18 13:02) Home Medications: Medication Instructions Recorded Glimepiride [Amaryl 1 MG (*)] 1 mg DAILY 05/21/17 Hydrochlorothiazide [HCTZ (*)] 25 mg DAILY 05/21/17 Losartan Potassium [Cozaar] 100 mg DAILY 05/21/17 Metoprolol Succinate Xr [Toprol Xl 50 mg BID 05/21/17 50 mg (*)] Multivitamins [Multivitamin (*)] 0.5 each HS 05/21/17 Omeprazole [Prilosec 20 mg] 20 mg BID 05/21/17 Simvastatin [Zocor] 10 mg HS 05/21/17 metFORMIN HCL [Glucophage 850 mg 850 mg BID 05/21/17 (*)] Ferrous Sulfate [Ferrous Sulf 325 325 mg DAILY 08/31/17 MG (*)] [place]-3 Fatty Acids [Fish Oil 1000 2,000 mg BID 05/18/18 mg (*)] Rivaroxaban [Xarelto] 20 mg HS 05/18/18 amLODIPine BESYLATE [Norvasc 5 mg 5 mg HS 05/18/18 (*)] Levothyroxine [Synthroid 150 mcg 150 mcg DAILY06 10/28/18 (*)] Medical Decision Making - Diagnostics Imaging Results: Imaging Impressions Ankle X-Ray 10/31/18 13:29 Impression: Negative right ankle series. Extremity Venous Study 10/31/18 13:29 Impression: No deep venous thrombosis right leg. Results called to Jodi Locke PA-C, 2:15 PM Procedures: Procedure: Splint placement. A right [place] boot was applied. After application of the splint I returned and re-examined the patient. The splint was adequately immobilizing the joint and distal to the splint the patient's circulation and sensation was intact. ED Course/Re-evaluation: Vital signs reviewed and stable upon arrival. Right ankle x-ray and right lower extremity ultrasound ordered 1357: Ankle x-ray my read shows no fracture, no dislocation, significant soft tissue swelling 1414: Called by Radiology who advised that ultrasound shows no acute deep venous thrombosis. Suspect ankle sprain; placed in walking boot with orthopedic follow-up No signs of neurovascular compromise/tenting of skin/compartment syndrome/ extremities and joints examined above and below area of concern and are neurovascularly intact. This patient was seen under the supervision of my secondary supervising physician. I evaluated care for this patient independently. Discussed this patient with Dr. Gonzalez who did not see the patient. Differential Diagnosis: Ankle injury differential diagnosis includes but is not limited to tibia fracture, fibula fracture, metatarsal fracture, LisFranc fracture, achilles tendon rupture, sprain. Departure - Departure Disposition: Home, Routine, Self-Care Clinical Impression: Moderate right ankle sprain Qualifiers: Encounter type: initial encounter Qualified Code(s): S93.401A - Sprain of unspecified ligament of right ankle, initial encounter Condition: Good Instructions: Ankle Sprain (ED) Additional Instructions: Wear the walking boot while out of bed or until pain free or seen by Orthopedics Take Tylenol 650 mg every 4 hours and/or Ibuprofen 600 mg every 8 hours with food as needed for pain. Apply ice for 30 minutes at a time; 2-3 times per day for the next 1-2 days. Elevate right lower extremity as needed to decrease swelling. Take oxycodone every 4-6 hours as needed for severe/breakthrough pain. Follow up with Orthopedics in 7-10 days if symptoms persist at which time they will evaluate and recommend with you if conservative management further imaging like MRI is indicated. The x-rays obtained in the emergency department today demonstrate no evidence of an obvious fracture. The ultrasound in the emergency department today demonstrates no evidence of a blood clot in your right lower leg. Referrals: Sima Rojo MD [Primary Care Provider] - As per Instructions Galileo Kasper MD [Medical Doctor] - As per Instructions
[2018-10-31 15:30] VITALS: BP 163/103
== END 2018-10-31 15:28 | disposition home or self-care (01) ==
DX: S93.401A Sprain of unspecified ligament of right ankle, initial encounter (principal); E11.9 Type 2 diabetes mellitus without complications; I10 Essential (primary) hypertension; E78.5 Hyperlipidemia, unspecified; E03.9 Hypothyroidism, unspecified; W00.0XXA Fall on same level due to ice and snow, initial encounter; Y92.9 Unspecified place or not applicable; Y93.9 Activity, unspecified; Y99.9 Unspecified external cause status
CPT/HCPCS: 73610; 93971; 99284; L4386

== ENCOUNTER 2018-11-04 11:09 | Day surgery (SDC) | payer OTHER, BC ==
[2018-11-04] MEDS ORDERED: LR 1,000 ML IV ONE (11:20)
--- NOTE | 2018-11-04 12:00 | PDANEPAE ---
ANE Past Medical History - Cardiovascular History Hx Hypertension: Yes Hx Arrhythmias: Yes Hx Chest Pain: No Hx Coronary Artery / Peripheral Vascular Disease: No Hx CHF / Valvular Disease: No Hx Palpitations: No Cardiovascular History Comment: hx afib. - Pulmonary History Hx COPD: No Hx Asthma/Reactive Airway Disease: No Hx Recent Upper Respiratory Infection: No Hx Oxygen in Use at Home: No Hx Sleep Apnea: Yes Sleep Apnea Screening Result - Last Documented: Positive Pulmonary History Comment: alisa positive, uses cpap - Neurologic History Hx Cerebrovascular Accident: No Hx Seizures: No Hx Dementia: No - Endocrine History Hx Diabetes: Yes Hypothyroid: Yes Hyperthyroid: No Obesity: severe Endocrine History Comment: DM type 2. hypothyroidism - Renal History Hx Renal Disorders: Yes Renal History Comment: bph. hx of greenlight laser surgery. frequency - Liver History Hx Hepatic Disorders: No - Neurological & Psychiatric Hx Hx Neurological and Psychiatric Disorders: No - Cancer History Hx Cancer: Yes Cancer History Comment: skin ca removed x6 - Congenital Disorder History Hx Congenital Disorders: No - GI History GERD: moderate Hx Gastrointestinal Disorders: Yes Gastrointestinal History Comment: reflux. hx of hernia repairs - Other Health History Other Health History: wears glasses. bilateral hearing aids. posterior of RLE "terrible bruise" - Chronic Pain History Chronic Pain: Yes (lower back) - Surgical History Prior Surgeries: left TKA 05/2018. eyelid surgery. sinus surgery. skin ca removed x6. greenlight laser prostate surgery. hernia repairs. pyloric stenosis surgery at 6 weeks old ANE Review of Systems Review of systems is: negative Review of Systems: - Exercise capacity Exercise capacity: limited by disability METS (RN): 3 METS ANE Patient History - Allergies Allergies/Adverse Reactions: No Known Allergies Allergy (Verified 10/31/18 13:02) - Home Medications Home medications: home medication list seen and reviewed Home Medications: Glimepiride [Amaryl 1 MG (*)] 1 mg DAILY 05/21/17 [Last Taken 1 Day Ago ~] Hydrochlorothiazide [HCTZ (*)] 25 mg DAILY 05/21/17 [Last Taken 1 Day Ago ~11/03] Losartan Potassium [Cozaar] 100 mg DAILY 05/21/17 [Last Taken 1 Day Ago ~] Metoprolol Succinate Xr [Toprol Xl 50 mg (*)] 50 mg BID 05/21/17 [Last Taken 09/12 05:30] Multivitamins [Multivitamin (*)] 0.5 each HS 05/21/17 [Last Taken 1 Week Ago ~] Omeprazole [Prilosec 20 mg] 20 mg BID 05/21/17 [Last Taken 11/04/18 05:30] Simvastatin [Zocor] 10 mg HS 05/21/17 [Last Taken 1 Day Ago ~11/03/18] metFORMIN HCL [Glucophage 850 mg (*)] 850 mg BID 05/21/17 [Last Taken 1 Day Ago ~11/03/18] Ferrous Sulfate [Ferrous Sulf 325 MG (*)] 325 mg DAILY 08/31/17 [Last Taken 1 Month Ago ~10/04/18] [place]-3 Fatty Acids [Fish Oil 1000 mg (*)] 2,000 mg BID 05/18/18 [Last Taken 1 Week Ago ~10/28/18] Rivaroxaban [Xarelto] 20 mg HS 05/18/18 [Last Taken 10/30/18] amLODIPine BESYLATE [Norvasc 5 mg (*)] 5 mg HS 05/18/18 [Last Taken 11/04/18 05: 30] Levothyroxine [Synthroid 150 mcg (*)] 150 mcg DAILY06 10/28/18 [Last Taken 11/04 03:30] - NPO status NPO Status: no food or drink >8 hours NPO Since - Liquids (Date): 11/03/18 NPO Since - Liquids (Time): 20:00 NPO Since - Solids (Date): 11/03/18 NPO Since - Solids (Time): 20:00 - Anes Hx Anes Hx: no prior problems - Smoking Hx Smoking Status: Never smoked - Family Anes Hx Family Hx Anesthesia Complications: none ANE Labs/Vital Signs - Labs Result Diagrams: 10/31/18 11:50 - Vital Signs Vital Signs: reviewed preoperatively; see RN documention for details Blood Pressure: 175/93 Heart Rate: 56 Respiratory Rate: 16 O2 Sat (%): 92 Height: 175.26 cm Weight: 117.934 kg ANE Physical Exam - Airway Neck exam: FROM Mallampati Score: Class 2 Mouth exam: normal dental/mouth exam - Pulmonary Pulmonary: no respiratory distress - Cardiovascular Cardiovascular: regular rate and rhythym - ASA Status ASA Status: IV ANE Anesthesia Plan Anesthesia Plan: general endotracheal anesthesia
[2018-11-04] MEDS ORDERED: PROPOFOL 200 MG/20 ML VIAL ONE (12:16)
[2018-11-04] MEDS ORDERED: ROCURONIUM 50 MG/5 ML VIAL ONE (12:18)
[2018-11-04] MEDS ORDERED: LIDOCAINE 2% 5 ML SDV ONE (12:19)
[2018-11-04] MEDS ORDERED: DEXAMETHASONE 4 MG/ML VIAL ONE ×2 (12:21)
[2018-11-04] MEDS ORDERED: ONDANSETRON 4 MG/2 ML VIAL ONE (12:21)
[2018-11-04] MEDS ORDERED: LIDO/EPI 1% **Not for Epidural 20 ML MDV ONE (13:01)
[2018-11-04] MEDS ORDERED: OXYMETAZOLINE 30 ML NASAL SPRAY ONE (13:01)
[2018-11-04] MEDS ORDERED: fentaNYL 100 MCG/2 ML INJ ONE (13:02)
[2018-11-04] MEDS ORDERED: SURGIFLO MATRIX KIT WITH THROMBIN 8 ML TP ONE (13:02)
[2018-11-04] MEDS ORDERED: BACITRACIN ZINC 0.5 OZ OINTTUBE TP ONE (13:02)
--- NOTE | 2018-11-04 13:04 | PDGENHP ---
History & Physical Chief Complaint: Nasal Obstruction History of Present Illness: Septal and turbinate obstruction. H/O septo. Pertinent Past, Social, Family History: Reviewed Relevant Physical Exam: ENT: NC/AT, Nose clear. Chest: CTA Cardiorespiratory Assessment: A/P: Appropriate for OR septo & Turb
[2018-11-04] MEDS ORDERED: REMIFENTANIL HCL 1 MG VIAL ONE (13:10)
[2018-11-04] MEDS ORDERED: ePHEDrine SULFATE 25 MG/5 ML SYR ONE (13:57)
[2018-11-04] MEDS ORDERED: PHENYLEPHRINE HCL 100 MCG/ML SYR ONE (13:58)
[2018-11-04] MEDS ORDERED: HYDROCODONE/APAP 5/325 TAB PO PRN (14:33)
[2018-11-04] MEDS ORDERED: OXYMETAZOLINE 30 ML NASAL SPRAY EACHNARE PRN (14:33)
--- NOTE | 2018-11-04 14:33 | POSTOPPROG ---
Post Op Note Date of Operation: 11/04/18 Surgeon: Chato Perera Anesthesia: GET(General Endotracheal) Pre-op Diagnosis: Obstructive septal deviation and inferior turbinate hypertrophy Post-op Diagnosis: Obstructive septal deviation and inferior turbinate hypertrophy Indication: Obstructive septal deviation and inferior turbinate hypertrophy Procedure: Endo septoplasty and turbinate SMR & Ourfx Findings: Obstructive septal deviation and inferior turbinate hypertrophy Inf/Abcess present in the surg proc area at time of surgery?: No Depth: Deep Incisional (Fascial) EBL: Minimal Complications: none Specimen(s): NONe
[2018-11-04] MEDS ORDERED: ALBUTEROL 3 ML DEYVIAL IH PRN (15:42)
[2018-11-04] MEDS ORDERED: MEPERIDINE 25 MG/0.5 ML AMP IVP PRN (15:42)
[2018-11-04] MEDS ORDERED: ACETAMINOPHEN 500 MG TAB PO PRN (15:42)
[2018-11-04] MEDS ORDERED: PROMETHAZINE HCL 25 MG/ML INJ IVP PRN (15:42)
[2018-11-04] MEDS ORDERED: LABETALOL HCL 5 MG/ML 20 ML MDV IVP PRN (15:42)
[2018-11-04] MEDS ORDERED: NALOXONE HCL 0.4 MG/ML INJ IVP PRN (15:42)
[2018-11-04] MEDS ORDERED: METOCLOPRAMIDE 10 MG/2 ML VIAL IVP PRN (15:42)
[2018-11-04] MEDS ORDERED: LR 500 ML IV PRN (15:42)
[2018-11-04] MEDS ORDERED: PHENYLEPHRINE HCL 100 MCG/ML SYR IVP PRN (15:42)
[2018-11-04] MEDS ORDERED: oxyCODONE IR 5 MG TAB PO PRN (15:42)
[2018-11-04] MEDS ORDERED: HYDROmorphONE/DILAUDID 2 MG/ML INJ IVP PRN (15:42)
[2018-11-04] MEDS ORDERED: fentaNYL 100 MCG/2 ML INJ IVP PRN (15:42)
[2018-11-04 16:03] VITALS: BP 155/86
== END 2018-11-04 15:24 | disposition home or self-care (01) ==
LOC: FSGY 11:09
PROVIDERS: ATTEND Otolaryngology
PROC: 09BL8ZZ Excision of Nasal Turbinate, Via Natural or Artificial Opening Endoscopic (ICD-10-PCS; principal; 2018-11-04 13:00)
PROC: 09QM8ZZ Repair Nasal Septum, Via Natural or Artificial Opening Endoscopic (ICD-10-PCS; principal; 2018-11-04 13:00)
DX: J34.2 Deviated nasal septum (principal); J34.3 Hypertrophy of nasal turbinates; I10 Essential (primary) hypertension; I48.91 Unspecified atrial fibrillation; G47.33 Obstructive sleep apnea (adult) (pediatric); E11.9 Type 2 diabetes mellitus without complications; E03.9 Hypothyroidism, unspecified; Z85.828 Personal history of other malignant neoplasm of skin
CPT/HCPCS: J1100; J2370; J2405; J2704; J3010

== ENCOUNTER 2018-11-26 20:57 | Emergency (ER) | payer OTHER, BC ==
[2018-11-26] MEDS ORDERED: CEPHALEXIN 500 MG CAP PO ONE (21:44)
--- NOTE | 2018-11-26 22:00 | EDPHY ---
H & P Stated Complaint: HEMATURIA,FREQUENCY SINCE AM Time Seen by Provider: 11/26/18 21:38 HPI/ROS: CHIEF COMPLAINT: Hematuria and frequency HISTORY OF PRESENT ILLNESS: Patient is a 78-year-old obese man who comes to the emergency department complaining of urinary frequency, dysuria and hematuria. His symptoms began yesterday. He reports history of green light prostate ablation multiple years ago. He has not had difficulty since then. No fever. No back pain. No suprapubic pain. Severity: Moderate Modifying factors: None REVIEW OF SYSTEMS: Constitutional: denies: chills, fever, recent illness, recent injury EENTM: denies: blurred vision, double vision, nose congestion Respiratory: denies: cough, shortness of breath Cardiac: denies: chest pain, irregular heart rate, lightheadedness, palpitations Gastrointestinal/Abdominal: denies: abdominal pain, diarrhea, nausea, vomiting, blood streaked stools Genitourinary: See HPI Musculoskeletal: denies: joint pain, muscle pain Skin: denies: lesions, rash, jaundice, bruising Neurological: denies: headache, numbness, paresthesia, tingling, dizziness, weakness Hematologic/Lymphatic: denies: blood clots, easy bleeding, easy bruising Immunologic/allergic: denies: HIV/AIDS, transplant 10 systems reviewed and negative except as noted EXAM: GENERAL: Well-appearing, well-nourished and in no acute distress. HEAD: Atraumatic, normocephalic. EYES: Pupils equal round and reactive to light, extraocular movements intact, sclera anicteric, conjunctiva are normal. ENT: TMs normal, nares patent, oropharynx clear without exudates. Moist mucous membranes. NECK: Normal range of motion, supple without lymphadenopathy or JVD. LUNGS: Breath sounds clear to auscultation bilaterally and equal. No wheezes rales or rhonchi. HEART: Regular rate and rhythm without murmurs, rubs or gallops. ABDOMEN: Soft, nontender, normoactive bowel sounds. No guarding, no rebound. No masses appreciated. : Normal penile exam, no erythema, no discharge. No testicular swelling or tenderness. BACK: No CVA tenderness, no spinal tenderness, step-offs or deformities EXTREMITIES: Normal range of motion, no pitting or edema. No clubbing or cyanosis. NEUROLOGICAL: Cranial nerves II through XII grossly intact. Normal speech, normal gait. 5/5 strength, normal movement in all extremities, normal sensation , normal reflexes PSYCH: Normal mood, normal affect. SKIN: Warm, dry, normal turgor, no visible rashes or lesions. Source: Patient, Family Exam Limitations: No limitations - Personal History Current Tetanus Diphtheria and Acellular Pertussis (TDAP): Yes - Medical/Surgical History Hx Asthma: No Hx Chronic Respiratory Disease: Yes Hx Diabetes: Yes Hx Cardiac Disease: Yes Hx Renal Disease: No Hx Cirrhosis: No Hx Alcoholism: No Hx HIV/AIDS: No Hx Splenectomy or Spleen Trauma: No Other PMH: HTN, DM2, hypothyroid, GERD, dyslipidemia, JOHN/CPAP, a-fib, TAZ KNEE REPLACEMENTS, TONSILLECTOMY - Family History Significant Family History: No pertinent family hx - Social History Smoking Status: Never smoked Alcohol Use: None Constitutional: Initial Vital Signs Temperature (C) 36.7 C 11/26/18 21:12 Heart Rate 108 H 11/26/18 21:12 Respiratory Rate 16 11/26/18 21:12 Blood Pressure 165/100 H 11/26/18 21:12 O2 Sat (%) 90 L 11/26/18 21:12 O2 Delivery Mode Room Air Allergies/Adverse Reactions: No Known Allergies Allergy (Verified 10/31/18 13:02) Home Medications: Medication Instructions Recorded Glimepiride [Amaryl 1 MG (*)] 1 mg DAILY 05/21/17 Hydrochlorothiazide [HCTZ (*)] 25 mg DAILY 05/21/17 Losartan Potassium [Cozaar] 100 mg DAILY 05/21/17 Metoprolol Succinate Xr [Toprol Xl 50 mg BID 05/21/17 50 mg (*)] Multivitamins [Multivitamin (*)] 0.5 each HS 05/21/17 Omeprazole [Prilosec 20 mg] 20 mg BID 05/21/17 Simvastatin [Zocor] 10 mg HS 05/21/17 metFORMIN HCL [Glucophage 850 mg 850 mg BID 05/21/17 (*)] Ferrous Sulfate [Ferrous Sulf 325 325 mg DAILY 08/31/17 MG (*)] [place]-3 Fatty Acids [Fish Oil 1000 2,000 mg BID 05/18/18 mg (*)] Rivaroxaban [Xarelto] 20 mg HS 05/18/18 amLODIPine BESYLATE [Norvasc 5 mg 5 mg HS 05/18/18 (*)] Levothyroxine [Synthroid 150 mcg 150 mcg DAILY06 10/28/18 (*)] Cephalexin [Keflex] 500 mg PO TID #21 cap 11/26/18 Phenazopyridine HCl [Pyridium] 200 mg PO TID #6 tab 11/26/18 Medical Decision Making ED Course/Re-evaluation: Patient's postvoid residual was 20 cc or less. Urine has been sent for analysis. Will start on antibiotics for urine infection based on symptoms. Will have him follow up with Urology. Patient's urinalysis is difficult to interpret in the setting of hematuria. Agrees with plan to start antibiotics and follow up with Urology. Also treat with Pyridium for symptom control. Differential Diagnosis: Partial list of the Differential diagnosis considered include but were not limited to; hematuria, urine infection, prostatic hypertrophy and although unlikely based on the history and physical exam, I also considered urinary retention, kidney stone, nephropathy. I discussed these differential diagnoses and the plan with the patient as well as the usual and expected course. The patient understands that the diagnosis is provisional and that in medicine we are not always correct and that further workup is often warranted. Usual and customary warnings were given. All of the patient's questions were answered. The patient was instructed to return to the emergency department should the symptoms at all worsen or return, otherwise to followup with the physician as we discussed. - Data Points Medications Given: Discontinued Medications Al Hydroxide/Mg Hydroxide (Maalox Susp) 30 ml PO ONCE ONE Stop: 11/26/18 22:34 Last Admin: 11/26/18 23:01 Dose: 30 ml Cephalexin HCl (Keflex) 500 mg PO EDNOW ONE PRN Reason: Protocol Stop: 11/26/18 21:45 Last Admin: 11/26/18 22:08 Dose: 500 mg Hyoscyamine Sulfate (Levsin, Hyomax-Sl) 0.25 mg PO ONCE ONE Stop: 11/26/18 22:34 Last Admin: 11/26/18 23:01 Dose: 0.25 mg Lidocaine (Lidocaine 2% Viscous) 15 ml PO ONCE ONE Stop: 11/26/18 22:34 Last Admin: 11/26/18 23:01 Dose: 15 ml Phenazopyridine HCl (Pyridium) 200 mg PO EDNOW ONE Stop: 11/26/18 23:06 Last Admin: 11/26/18 23:21 Dose: 200 mg Departure - Departure Disposition: Home, Routine, Self-Care Clinical Impression: Urinary tract infection Qualifiers: Urinary tract infection type: site unspecified Hematuria presence: with hematuria Qualified Code(s): N39.0 - Urinary tract infection, site not specified ; R31.9 - Hematuria, unspecified; R31.9 - Hematuria, unspecified Hematuria Qualifiers: Hematuria type: gross Qualified Code(s): R31.0 - Gross hematuria Condition: Fair Instructions: Urinary Tract Infection in Men (ED), Hematuria (ED) Referrals: Sima Rojo MD [Primary Care Provider] - As per Instructions Vadim Garibay MD [Medical Doctor] - 2-3 days, call for appt. Prescriptions: Cephalexin [Keflex] 500 mg PO TID #21 cap Phenazopyridine HCl [Pyridium] 200 mg PO TID #6 tab
[2018-11-26] MEDS ORDERED: LIDOCAINE 2% VISCOUS 15 ML UDCUP PO ONE (22:33)
[2018-11-26] MEDS ORDERED: HYOSCYAMINE SULFATE 0.125 MG TAB PO ONE (22:33)
[2018-11-26] MEDS ORDERED: MAG HYDROX/AL HYDROX/SIMETH 30 ML UDCUP PO ONE (22:33)
[2018-11-26] MEDS ORDERED: PHENAZOPYRIDINE HCL 200 MG TAB PO ONE (23:05)
[2018-11-26 23:26] VITALS: BP 146/82
--- NOTE | 2018-11-30 14:29 | ASMTCMCOM ---
CM Note CM Note Notes: Follow up call to [facility][id number] and spoke with Carol regading patient's call and VM left with patient district representative requesting results of urine culture from ED visit on 11/26/18. Carol confirms that they were able to pull up results of culture and she has contacted patient regading follow up Date Signed: 11/30/2018 02:29 PM Electronically Signed By:Yolande Bell RN
== END 2018-11-26 23:25 | disposition home or self-care (01) ==
LOC: EEVIPCON 20:57
DX: N39.0 Urinary tract infection, site not specified (principal); R31.9 Hematuria, unspecified; E11.9 Type 2 diabetes mellitus without complications; I10 Essential (primary) hypertension; E03.9 Hypothyroidism, unspecified; K21.9 Gastro-esophageal reflux disease without esophagitis; E78.5 Hyperlipidemia, unspecified; G47.33 Obstructive sleep apnea (adult) (pediatric); I48.91 Unspecified atrial fibrillation; Z96.653 Presence of artificial knee joint, bilateral